=== PATIENT | male | born 1930 | race Caucasian/White ===

== ENCOUNTER → 2016-12-26 | Outpatient (CLI) | payer MEDICARE, OTHER ==
[~2016-12-26] MED LIST: AMLO5TAB2 PO; ASCO500T20 PO; ASP81TEC PO; CARV6.252 PO; CHOL100055 PO; DOXA4TAB2 PO; FURO40TA4 PO; OMG1KC PO; PARO20TA57 PO; POTA10TA6 PO; SIMV40TA4 PO; SULI200T4 PO
--- NOTE | 2016-12-26 13:10 | Diagnostic Imaging Report ---
PROCEDURE: MRI lumbar spine. TECHNIQUE: Multiplanar, multisequence MRI of the lumbar spine was performed without contrast. INDICATION: Left hip pain. FINDINGS: There is satisfactory alignment of the lumbar spine. The vertebral body heights are preserved. There is disc desiccation at all lumbar spine levels. Multilevel mild disc height loss is seen, more prominent at L2/3 and L3/4 levels. There are congenitally short pedicles resulting in background borderline congenital spinal canal stenosis, most prominent at L4/5 level reducing the AP dimension of the canal at the mid vertebral body level to 9.3 mm. With superimposed disc disease, there is significantly worse degree of stenosis at the disc levels. The cauda equina and conus medullaris appear grossly unremarkable. The conus terminates at the T12/L1 level. A 1.6 cm T1 hyperintense lesion within the vertebral body L4 and smaller similar lesions in other vertebral bodies are compatible with hemangiomas. T12/L1: There is diffuse disc bulge and bilateral mild facet joint arthropathy. No significant central canal stenosis. There is mild narrowing of the lateral recess bilaterally. The foramina demonstrate moderate stenosis bilaterally. L1/2: There is a diffuse disc bulge and moderate facet arthropathy. There is zxwhrpsm-xm-ljitwm central canal stenosis reducing the AP dimension of the canal to 6.8 mm, and there is bilateral lateral recess stenosis, moderate on the left and moderate to severe in the right side. There is bilateral foraminal stenosis, moderate on the left and moderate to severe on the right side. L2/3: There is diffuse disc bulge and pralbvpf-me-xqmqhc facet arthropathy superimposed on a short AP dimension of the canal resulting in markedly severe central canal stenosis reducing the AP dimension of the canal to 4 mm and associated with severe lateral recess stenosis bilaterally. There is bilateral foraminal stenosis, moderate to severe on the left and severe on the right side. L3/4: There is diffuse disc bulge and lhjgkcbv-jy-sclseo facet arthropathy superimposed on congenitally narrow AP dimension of the canal resulting in markedly severe central canal stenosis reducing the AP dimension of the canal to 4 mm with severe lateral recess stenosis bilaterally, worse on the left. The foramina demonstrate qqzjxggf-gr-oynuqz stenosis bilaterally. L4/5: There is diffuse disc bulge with superimposed posterior disc protrusion and ivwfhhxb-dg-vhszpj facet arthropathy. This is superimposed on a congenitally narrow AP dimension of the canal resulting in markedly severe central canal stenosis reducing the AP dimension of the canal to 3.5 mm and associated with bilateral severe lateral recess stenosis. The foramina demonstrate bilateral stenosis, moderate to severe bilaterally but worse on the left side. L5/S1: There is a minimal disc bulge and mild facet hypertrophy. No central canal stenosis. There is bilateral lateral recess stenosis, mild on the right and mild to moderate on the left. The foramina demonstrate moderate stenosis on the left and mild stenosis on the right side. 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 Other findings described above. Dictated by: Dictated on workstation # [id number]
== END ==
LOC: RAD 11:50
PROVIDERS: ATTEND Orthopaedic Surgery
DX: M51.26 Other intervertebral disc displacement, lumbar region (principal); M48.06 Spinal stenosis, lumbar region
CPT/HCPCS: 72148

== ENCOUNTER 2018-10-05 14:19 | Inpatient (IN) | payer MEDICARE, OTHER ==
[~2018-10-05] VITALS: Ht 172.7 cm; Wt 102.1 kg
[2018-10-05] MEDS ORDERED: NITROGLYCERIN 0.4 MG SL TABS BTL 25'S SL ONE (14:21)
[2018-10-05] MEDS ORDERED: NS IV 1000 ML 1,000 ML ONE (14:21)
[2018-10-05] MEDS: NITROGLYCERIN 0.4 MG SL TABS BTL 25'S SL PRN ×2 (14:28→14:40)
[2018-10-05] MEDS ORDERED: NS IV 1000 ML 1,000 ML IV SCH (14:30)
--- NOTE | 2018-10-05 14:32 | ED Chest Pain ---
General Stated Complaint: CP Source: patient, EMS Exam Limitations: no limitations History of Present Illness Date Seen by Provider: Oct 05, 2018 Time Seen by Provider: 14:28 Initial Comments This 87-year-old white male presents with a complaint of pressure type chest pain for which she the paramedics were called to care for the patient. The patient said similar chest pain the past from his previous coronary artery disease. He is status post bypass surgery. Paramedics provide the patient with partial relief with aspirin and nitroglycerin in route to the emergency department. The patient's chest pain went from a 7 to a 2. Patient has been slightly short of breath and diaphoretic. Patient denies vomiting. The patient denies associated fever or chill productive cough headache stiff neck photophobia diarrhea dysuria or frequency. Allergies and Home Medications Allergies Uncoded Allergies: ZOLOFT, PENICILLIN (Allergy, Mild, 07/27/11) Home Medications Amlodipine Besylate 5 Mg Tablet, 5 MG PO DAILY, (Reported) Ascorbic Acid 500 Mg Tablet, 500 MG PO BID, (Reported) Aspirin 81 Mg Tabec, 81 MG PO DAILY, (Reported) Carvedilol 6.25 Mg Tablet, 1 EACH PO BID, (Reported) Cholecalciferol (Vitamin D3) 10,000 Unit Capsule, 10,000 UNIT PO DAILY, ( Reported) Doxazosin Mesylate 4 Mg Tablet, 4 MG PO DAILY, (Reported) Furosemide 40 Mg Tablet, 1 EACH PO 3xweekly, (Reported) [place] 3 Polyunsat Fatty Acids 1,000 Mg Cap, 1,000 MG PO DAILY, (Reported) Paroxetine Hcl 20 Mg Tablet, 20 MG PO DAILY, (Reported) Potassium Chloride 10 Meq Tablet.sa, 1 EACH PO 3xweekly, (Reported) Simvastatin 40 Mg Tablet, 40 MG PO DAILY, (Reported) Sulindac 200 Mg Tablet, 200 MG PO BID, (Reported) Patient Home Medication List Home Medication List Reviewed: Yes Review of Systems Review of Systems Constitutional: No chills, No fever; malaise, weakness EENTM: No Blurred Vision, No Ear Pain Respiratory: Denies Cough; Shortness of Air Cardiovascular: See HPI, Chest Pain; Denies Palpitations Gastrointestinal: Denies Abdominal Pain, Denies Diarrhea; Nausea Genitourinary: No Symptoms Reported Musculoskeletal: No back pain Skin: No change in color, No rash Psychiatric/Neurological: No Symptoms Reported Endocrine: No Symptoms Reported Hematologic/Lymphatic: No Symptoms Reported Past Nahfpwk-Gxiidw-Ochmhl Hx Past Med/Social Hx: Reviewed Nursing Past Med/Soc Hx Patient Social History Recent Foreign Travel: No Contact w/Someone Who Travel: No Immunizations Up To Date Date of Influenza Vaccine: Jun 09, 2011 Past Medical History Reproductive Disorders: No Physical Exam Vital Signs Vital Signs - First Documented 10/05/18 10/05/18 14:19 14:20 Temp 98.0 Pulse 77 Resp 20 B/P (MAP) 163/97 (119) Pulse Ox 89 O2 Delivery Room Air O2 Flow Rate 2.00 Capillary Refill : Height, Weight, BMI Height: '68.00" Weight: 230lbs. oz. 104.742200mm; BMI Method: General Appearance: No Apparent Distress, WD/WN HEENT: Normal ENT Inspection Neck: Normal Inspection Respiratory: Chest Non Tender, Lungs Clear, Normal Breath Sounds Cardiovascular: No Murmur Gastrointestinal: Normal Bowel Sounds, No Organomegaly Extremity: Normal Capillary Refill, Normal Inspection, Normal Range of Motion Neurologic/Psychiatric: Alert, Oriented x3, No Motor/Sensory Deficits, Normal Mood/Affect Skin: Normal Color, Warm/Dry Focused Exam Lactate Level 10/05/18 14:25: Lactic Acid Level 1.93 Lactic Acid Level Laboratory Tests Test 10/05/18 14:25 Lactic Acid Level 1.93 MMOL/L (0.50-2.00) Progress/Results/Core Measures Results/Orders Lab Results Laboratory Tests Test 10/05/18 14:25 Range/Units White Blood Count 57.2 *H 4.3-11.0 10^3/uL Red Blood Count 3.08 L 4.35-5.85 10^6/uL Hemoglobin 10.7 L 13.3-17.7 G/DL Hematocrit 31 L 40-54 % Mean Corpuscular Volume 102 H 80-99 FL Mean Corpuscular Hemoglobin 35 H 25-34 PG Mean Corpuscular Hemoglobin Concent 34 32-36 G/DL Red Cell Distribution Width 17.3 H 10.0-14.5 % Platelet Count 106 L 130-400 10^3/uL Mean Platelet Volume 10.7 H 7.4-10.4 FL Neutrophils (%) (Auto) 42-75 % Lymphocytes (%) (Auto) 12-44 % Monocytes (%) (Auto) 0-12 % Eosinophils (%) (Auto) 0-10 % Basophils (%) (Auto) 0-10 % Neutrophils # (Auto) 1.8-7.8 X 10^3 Lymphocytes # (Auto) 1.0-4.0 X 10^3 Monocytes # (Auto) 0.0-1.0 X 10^3 Eosinophils # (Auto) 0.0-0.3 10^3/uL Basophils # (Auto) 0.0-0.1 10^3/uL Neutrophils % (Manual) 10 % Lymphocytes % (Manual) 1 % Nucleated Red Blood Cells 1 Atypical Lymphocytes 80 % Blast Cells 9 % Smudge Cells 21 PER 100 WBC Polychromasia SLIGHT Poikilocytosis SLIGHT Anisocytosis SLIGHT Macrocytosis SLIGHT Prothrombin Time 16.2 H 12.2-14.7 SEC INR Comment 1.3 0.8-1.4 Activated Partial Thromboplast Time 25 24-35 SEC Sodium Level 142 135-145 MMOL/L Potassium Level 4.8 3.6-5.0 MMOL/L Chloride Level 105 98-107 MMOL/L Carbon Dioxide Level 23 21-32 MMOL/L Anion Gap 14 5-14 MMOL/L Blood Urea Nitrogen 17 7-18 MG/DL Creatinine 1.29 0.60-1.30 MG/DL Estimat Glomerular Filtration Rate 53 BUN/Creatinine Ratio 13 Glucose Level 144 H 70-105 MG/DL Lactic Acid Level 1.93 0.50-2.00 MMOL/L Calcium Level 9.0 8.5-10.1 MG/DL Corrected Calcium 8.9 8.5-10.1 MG/DL Magnesium Level 2.2 1.8-2.4 MG/DL Total Bilirubin 0.6 0.1-1.0 MG/DL Aspartate Amino Transf (AST/SGOT) 47 H 5-34 U/L Alanine Aminotransferase (ALT/SGPT) 26 0-55 U/L Alkaline Phosphatase 64 40-136 U/L Myoglobin 281.0 H 10.0-92.0 NG/ML Troponin I 0.314 *H <0.028 NG/ML Total Protein 6.2 L 6.4-8.2 GM/DL Albumin 4.1 3.2-4.5 GM/DL My Orders Orders - HENRY HALEY MD Nitroglycerin 0.4 Mg Btl 25's (Nitrostat (10/05/18 14:21) Ns Iv 1000 Ml (Sodium Chloride 0.9%) (10/05/18 14:21) Cbc With Automated Diff (10/05/18 14:25) Magnesium (10/05/18 14:25) Chest 1 View, Ap/Pa Only (10/05/18 14:25) Ekg Tracing (10/05/18 14:25) Cardiac Profile 1 (10/05/18 14:25) Comprehensive Metabolic Panel (10/05/18 14:25) Myoglobin Serum (10/05/18 14:25) Protime With Inr (10/05/18 14:25) Partial Thromboplastin Time (10/05/18 14:25) O2 (10/05/18 14:25) Monitor-Rhythm Ecg Trace Only (10/05/18 14:25) Lipid Panel (10/06/18 06:00) Nitroglycerin 0.4 Mg Btl 25's (Nitrostat (10/05/18 14:30) Saline Lock/Iv-Start (10/05/18 14:25) Ns Iv 1000 Ml (Sodium Chloride 0.9%) (10/05/18 14:30) Manual Differential (10/05/18 14:25) Blood Culture (10/05/18 14:39) Lactic Acid Analyzer (10/05/18 14:39) Morphine Injection (Morphine Injection (10/05/18 15:30) Nitroglycerin Ointment (Nitrobid Ointme (10/05/18 15:30) Ceftriaxone For Iv Use (Rocephin For I (10/05/18 16:00) Blood Culture (10/05/18 15:47) Lactic Acid Analyzer (10/05/18 15:47) Medications Given in ED Current Medications Medications Dose Ordered Sig/Anthony Route Start Time Stop Time Status Last Admin Dose Admin Morphine Sulfate 5 mg ONCE ONCE IVP 10/05/18 15:30 10/05/18 15:31 DC 10/05/18 15:42 5 MG Nitroglycerin 0.4 mg UD PRN SL 10/05/18 14:30 10/05/18 14:40 0.4 MG Vital Signs/I&O 10/05/18 10/05/18 14:19 14:20 Temp 98.0 Pulse 77 Resp 20 B/P (MAP) 163/97 (119) Pulse Ox 89 O2 Delivery Room Air Nasal Cannula O2 Flow Rate 2.00 Progress Progress Note : Time: 15:52 Progress Note The patient's chest pain was treated with sublingual nitroglycerin in route in the emergency department. The patient had an aspirin in the field. His EKG demonstrated a right bundle branch block. His troponin was minimally elevated at 0.3. The patient's residual chest pain was treated with a 5 mg dose of morphine IV and an inch of Nitropaste. The patient stated after receiving these medicines that his chest pain was resolving. Telephone consultation was undertaken with Dr. Marsh who recommended continuation of the Nitropaste, aspirin, and low molecular weight heparin 1 mg/ kg subcutaneous every [address] Aguirre was kind enough to admit the patient. The patient's chest x-ray demonstrated a questionable small infiltrate in the right base. Blood cultures and lactic acid were drawn. The patient was placed on protocol for community-acquired pneumonia. He received 2 g of Rocephin in the emergency department. The patient's white count was 50,000 with a predominance of lymphocytes. Departure Communication (Admissions) Time/Spoke to Admitting Phy: 15:54 Dr. Aguirre. 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 Referrals: ISHA LEAVITT DO (PCP/Family) Primary Care Physician HENRY HALEY MD Oct 05, 2018 14:32
[2018-10-05 14:36] LABS: HEMATOCRIT 31 % (40-54); HEMOGLOBIN 10.7 G/DL (13.3-17.7); MEAN CORPUSCULAR HEMOGLOBIN 35 PG (25-34); MEAN CORPUSCULAR HGB CONC 34 G/DL (32-36); MEAN CORPUSCULAR VOLUME 102 FL (80-99); MEAN PLATELET VOLUME 10.7 FL (7.4-10.4); PLATELET COUNT 106 10^3/uL (130-400); RED CELL DISTRIBUTION WIDTH 17.3 % (10.0-14.5)
[2018-10-05 14:38] LABS: WHITE BLOOD COUNT 57.2 10^3/uL (4.3-11.0)
[2018-10-05 14:49] LABS: INR 1.3 (0.8-1.4); PROTHROMBIN TIME PATIENT 16.2 SEC (12.2-14.7)
[2018-10-05 14:55] LABS: ALBUMIN 4.1 GM/DL (3.2-4.5); BILIRUBIN,TOTAL 0.6 MG/DL (0.1-1.0); CREATININE SERUM 1.29 MG/DL (0.60-1.30); MAGNESIUM 2.2 MG/DL (1.8-2.4); POTASSIUM 4.8 MMOL/L (3.6-5.0); TOTAL PROTEIN 6.2 GM/DL (6.4-8.2)
--- NOTE | 2018-10-05 15:05 | Diagnostic Imaging Report ---
INDICATION: Chest pain, shortness air. TIME OF EXAM: 2:35 p.m. COMPARISON: No prior studies are available for comparison. FINDINGS: Changes of median sternotomy and CABG are noted. There are central congestive changes. There appears to be some mild infiltrate in the right base. No effusion or pneumothorax is seen. IMPRESSION: Central congestion with patchy right basilar infiltrate/atelectasis. Dictated by: Dictated on workstation # [id number]
[2018-10-05 15:12] LABS: ANISOCYTOSIS SLIGHT; ATYPICAL LYMPHOCYTES 80 %; BLAST CELLS 9 %; LYMPHOCYTES % (MANUAL) 1 %; NEUTROPHILS % (MANUAL) 10 %; NUCLEATED RED BLOOD CELLS 1; POIKILOCYTOSIS SLIGHT; POLYCHROMASIA SLIGHT; SMUDGE CELLS 21 PER 100 WBC
[2018-10-05] MEDS ORDERED: NITROGLYCERIN 2% OINT 1 GM UNIT DOSE PACKET TOP ONE (15:30)
[2018-10-05] MEDS ORDERED: morphine INJ 10 MG/ML 1ML (SYR OR VIAL) IVP ONE (15:30)
[2018-10-05] MEDS ORDERED: cefTRIAXone FOR IV USE 2,000 MG in WATER (STERILE) FOR INJECTION 20 ML IV ONE (16:00)
--- NOTE | 2018-10-05 16:19 | Consultation-Cardiology ---
HPI-Cardiology Cardiology Consultation Date of Consultation 10/05/18 Date of Admission Time Seen by Provider: 16:15 Indication: chest pain HPI 87 years old gentleman with history of coronary artery disease, had 2 bypass surgeries in the past, hypertension and hyperlipidemia. Was in his usual state of health until yesterday when he started having mild shortness of breath and fatigue in addition to chest pain, expressed that he had pain all over his chest yesterday which became more left sided this afternoon, called EMS and given sublingual nitroglycerin with appropriate improvement of his chest pain, up and arrival to the emergency room receive a second dose of nitroglycerin and reported relief of his chest pain, currently having mild discomfort. No palpitation. Mild dyspnea. Mild pedal edema, no fever or chills. No cough or sputum. Home Medications & Allergies Allergies: Uncoded Allergies: ZOLOFT, PENICILLIN (Allergy, Mild, 07/27/11) Home Medication List Reviewed: Yes ZZJ-[place]-Fhjkmf Hx Patient Social History Employed/Student: retired Recent Foreign Travel: No Recent Infectious Disease Expo: No Immunizations Up To Date Date of Influenza Vaccine: Jun 09, 2011 Past Medical History Past medical history as described below Family Medical History Family Medical Hx Noncontributory to his current condition Review of Systems Constitutional: see HPI, malaise, weakness EENTM: see HPI, no symptoms reported Respiratory: see HPI; No cough; dyspnea on exertion; No hemoptysis, No orthopnea, No phlegm, No short of breath, No stridor, No wheezing, No other Cardiovascular: see HPI, chest pain, edema; No Hx of Intervention, No palpitations, No syncope, No vascular heart diseas, No other Gastrointestinal: no symptoms reported, see HPI Genitourinary: no symptoms reported, see HPI Musculoskeletal: no symptoms reported, see HPI Skin: no symptoms reported, see HPI Psychiatric/Neurological: No Symptoms Reported, See HPI Reviewed Test Results Reviewed Test Results Lab Laboratory Tests Test 10/05/18 14:25 Range/Units White Blood Count 57.2 *H 4.3-11.0 10^3/uL Red Blood Count 3.08 L 4.35-5.85 10^6/uL Hemoglobin 10.7 L 13.3-17.7 G/DL Hematocrit 31 L 40-54 % Mean Corpuscular Volume 102 H 80-99 FL Mean Corpuscular Hemoglobin 35 H 25-34 PG Mean Corpuscular Hemoglobin Concent 34 32-36 G/DL Red Cell Distribution Width 17.3 H 10.0-14.5 % Platelet Count 106 L 130-400 10^3/uL Mean Platelet Volume 10.7 H 7.4-10.4 FL Neutrophils (%) (Auto) 42-75 % Lymphocytes (%) (Auto) 12-44 % Monocytes (%) (Auto) 0-12 % Eosinophils (%) (Auto) 0-10 % Basophils (%) (Auto) 0-10 % Neutrophils # (Auto) 1.8-7.8 X 10^3 Lymphocytes # (Auto) 1.0-4.0 X 10^3 Monocytes # (Auto) 0.0-1.0 X 10^3 Eosinophils # (Auto) 0.0-0.3 10^3/uL Basophils # (Auto) 0.0-0.1 10^3/uL Neutrophils % (Manual) 10 % Lymphocytes % (Manual) 1 % Nucleated Red Blood Cells 1 Atypical Lymphocytes 80 % Blast Cells 9 % Smudge Cells 21 PER 100 WBC Polychromasia SLIGHT Poikilocytosis SLIGHT Anisocytosis SLIGHT Macrocytosis SLIGHT Prothrombin Time 16.2 H 12.2-14.7 SEC INR Comment 1.3 0.8-1.4 Activated Partial Thromboplast Time 25 24-35 SEC Sodium Level 142 135-145 MMOL/L Potassium Level 4.8 3.6-5.0 MMOL/L Chloride Level 105 98-107 MMOL/L Carbon Dioxide Level 23 21-32 MMOL/L Anion Gap 14 5-14 MMOL/L Blood Urea Nitrogen 17 7-18 MG/DL Creatinine 1.29 0.60-1.30 MG/DL Estimat Glomerular Filtration Rate 53 BUN/Creatinine Ratio 13 Glucose Level 144 H 70-105 MG/DL Lactic Acid Level 1.93 0.50-2.00 MMOL/L Calcium Level 9.0 8.5-10.1 MG/DL Corrected Calcium 8.9 8.5-10.1 MG/DL Magnesium Level 2.2 1.8-2.4 MG/DL Total Bilirubin 0.6 0.1-1.0 MG/DL Aspartate Amino Transf (AST/SGOT) 47 H 5-34 U/L Alanine Aminotransferase (ALT/SGPT) 26 0-55 U/L Alkaline Phosphatase 64 40-136 U/L Myoglobin 281.0 H 10.0-92.0 NG/ML Troponin I 0.314 *H <0.028 NG/ML Total Protein 6.2 L 6.4-8.2 GM/DL Albumin 4.1 3.2-4.5 GM/DL Physical Exam Vital Signs Vital Signs - First Documented 10/05/18 10/05/18 14:19 14:20 Temp 98.0 Pulse 77 Resp 20 B/P (MAP) 163/97 (119) Pulse Ox 89 O2 Delivery Room Air O2 Flow Rate 2.00 Capillary Refill : Less Than 3 Seconds Height, Weight, BMI Height: 5'8.00" Weight: 220lbs. oz. 99.336821ju; BMI Method:Stated General Appearance: No Apparent Distress, WD/WN Eyes: Bilateral Eye Normal Inspection, Bilateral Eye PERRL, Bilateral Eye EOMI HEENT: PERRL/EOMI, TMs Normal, Normal ENT Inspection, Pharynx Normal Neck: Full Range of Motion, Normal Inspection, Non Tender, Supple, Carotid Bruit Respiratory: Chest Non Tender, Lungs Clear, Normal Breath Sounds, No Accessory Muscle Use, No Respiratory Distress Cardiovascular: Regular Rate, Rhythm, No JVD, No Murmur, Normal Peripheral Pulses, Gallop/S3 Gastrointestinal: Normal Bowel Sounds, No Organomegaly, No Pulsatile Mass, Non Tender, Soft Back: Normal Inspection, No CVA Tenderness, No Vertebral Tenderness Extremity: Normal Capillary Refill, Normal Inspection, Normal Range of Motion, Non Tender, No Calf Tenderness, Pedal Edema (mild) Neurologic/Psychiatric: Alert, Oriented x3, No Motor/Sensory Deficits, Normal Mood/Affect Skin: Normal Color, Warm/Dry Lymphatic: No Adenopathy A/P-Cardiology Admission Diagnosis Chest pain Non-ST elevation myocardial infarction Coronary artery disease Hypertension Hyperlipidemia Assessment/Plan Chest pain, slight elevation in troponin and myoglobin, non-ST elevation myocardial infarction, conservative management at this time, he is feeling better. Continue to monitor, monitor the trend of his cardiac enzymes. Coronary artery disease, history of CABG 4 done in 1981 and redo CABG 5 done in 1999, has been followed by Dr. Cardoza, had an angiogram about 5 years ago and treated conservatively Hypertension, restart home medication, has been on losartan and carvedilol. Monitor blood pressure Hyperlipidemia, monitor lipids Benign prostatic hypertrophy Parkinson disease DAVINA YAN MD Oct 05, 2018 16:19
[2018-10-05] MEDS ORDERED: ASPIRIN E.C. 325 MG (ECOTRIN) TABLET PO ONE (16:30)
[2018-10-05] MEDS ORDERED: ENOXAPARIN 100 MG/1 ML (LOVENOX) SYR SC SCH ×2 (16:30)
--- NOTE | 2018-10-05 17:10 | NUR ---
BRIANA GARCIA admitted to room 408-1, with an admitting diagnosis of CHEST PAIN, POSSIBLE IA, LEUKOCYTOSIS, POSSIBLE LYMPHOMA, PNEUMONIA, on 10/05/18 from ED via STRETCHER, accompanied by STAFF. BRIANA GARCIA introduced to surroundings, call light, bed controls, phone, TV, temperature control, lights, meal times, smoking policy, visitor policy, side rail policy, bathrooms and showers. Patient Rights given to patient in the handbook. BRIANA GARCIA verbalizes understanding that [facility] is not responsible for the loss or damage to any personal effects or valuables that are kept in the patients posession during their hospitalization. BRIANA GARCIA verbalizes understanding of Interdisciplinary Patient Education. Patient and/or family were informed about the Rapid Response Team and its purpose.
[2018-10-05 18:48] VITALS: BP 140/65
[2018-10-05] MEDS: NS IV 1000 ML 1,000 ML IV SCH (19:31)
[2018-10-05] MEDS ORDERED: AZITHROMYCIN 500 MG/NS 250 ML IVPB IV ONE ×2 (19:45)
[2018-10-05 19:51] VITALS: BP 157/72
--- NOTE | 2018-10-05 20:10 | NUR ---
2002- CRITICAL RESULT CALLED FROM LAB. TROPONIN-0.427. PTS VITAL SIGNS AT THIS TIME ARE T-100.1, PULSE-78, RESP-18, O2-93% ON 2 LITERS NC, BP-157/72 AND NO CHEST PAIN AT THIS TIME. 2008- SPOKE WITH DR. YAN AND INFORMED HIM OF PTS CONDITION, CRITICAL LAB AND PREVIOUS EKG READING. NO NEW ORDERS AT THIS TIME. WILL CONTINUE TO MONITOR PT.
[2018-10-05] MEDS: RT-ALBUTEROL SULF 2.5 MG/3 ML PRE-MIX VIAL INH SCH (21:09)
[2018-10-05] MEDS: NITROGLYCERIN 2% OINT 1 GM UNIT DOSE PACKET TOP SCH (21:48)
[2018-10-05] MEDS: CARVEDILOL 12.5 MG (COREG) TABLET PO SCH (21:48)
--- OUTSIDE RECORDS SUMMARY | 2018-10-05 22:50 | XMS REPORT ---
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 Role Phone GAMALIEL LOZA Unavailable PROBLEMS Type Condition ICD9-CM Code FSO27-LS Code Onset Dates Condition Status SNOMED Code Problem Encounter for dental examination Z01.20 Active [id number] ALLERGIES Substance Reaction Event Type Date Status Zoloft Unknown Drug Allergy Aug, Active Penicillin V Potassium Unknown Drug Allergy Aug, Active SOCIAL HISTORY No smoking Hx information available PLAN OF CARE Activity Details Follow Up First Available Reason:Restorative VITAL SIGNS Heart Rate 63 bpm 2016-09-26 Blood pressure systolic 158 mmHg 2016-09-26 Blood pressure diastolic 78 mmHg 2016-09-26 MEDICATIONS Medication Instructions Dosage Frequency Start Date End Date Duration Status Cephalexin 500 MG Orally Twice a day 1 tablet 12h Active Simvastatin Active Doxazosin Mesylate Active Aspirin Active Terazosin HCl Active Carvedilol Active Vitamin D-3 Active Vitamin B 12 Active Amber-C Active Furosemide Active Losartan Potassium Active RESULTS No Results PROCEDURES Procedure Date Ordered Related Diagnosis Body Site LTD ORAL EVALUATION - PROBLEM FOCUS Sep 26, 2016 Periodontal maint procedures Sep 26, 2016 TOPICAL FLUORIDE VARNISH Sep 26, 2016 IMMUNIZATIONS No Known Immunizations
--- OUTSIDE RECORDS SUMMARY | 2018-10-05 22:51 | XMS REPORT ---
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 Role Phone ROSIE BERRY CP Unavailable Allergies, Adverse Reactions, Alerts Substance Reaction Event Type Zoloft Info Not Available Drug Allergy Penicillin V Potassium Info Not Available Drug Allergy Problems Problem Type Condition Code Onset Dates Condition Status Assessment Dental caries K02.9 Active Assessment Encounter for dental examination Z01.20 Active Medications Medication Code System Code Instructions Start Date End Date Status Dosage Losartan Potassium [facility] [address]-72 not defined Simvastatin [facility] [address]-65 not defined Vitamin B 12 [facility] [address] not defined Amber-C [facility] [address]-02 not defined Doxazosin Mesylate [facility] [address]-12 not defined Aspirin [facility] [address]-60 not defined Carvedilol [facility] [address]-20 not defined Vitamin D-3 [facility] [address] not defined Furosemide [facility] [address]-77 not defined Klor-Con [facility] [address]-08 not defined [place] [facility] [address]-59 5-325 MG Orally every 6 hrs Jun 14, 2015 Jun 18, 2015 1 tablet as needed Fish Oil [facility] [address]-46 not defined Procedures Procedure Coding System Code Date EXTRAC ERUPTED TOOTH/EXPOSED ROOT CPT-4 D7140 May 24, 2015 EXTRAC ERUPTED TOOTH/EXPOSED ROOT CPT-4 D7140 May 24, 2015 Vital Signs Date/Time: Jun 14, 2015 Blood Pressure Diastolic 53 mmHg Blood Pressure Systolic 143 mmHg Results No Known Results Summary Purpose [employer] Submission
--- OUTSIDE RECORDS SUMMARY | 2018-10-05 22:51 | XMS REPORT | Continuity of Care Document ---
Author Author [facility] Organization [facility] Address Unknown Phone Unavailable Allergies Active Description Code Type Severity Reaction Onset Reported/Identified Relationship to Patient Clinical Status Yes PENICILLINS (CLASS) [id number] CLASS N/A N/A Yes ZOLOFT [id number] BRANDNAME N/A N/A Yes ZOLOFT, PENICILLIN ZOLOFT, PENICILLIN Mild N/A 07/27/2011 Medications There is no data. Problems Date Dx Coded Attending Type Code Diagnosis Diagnosed By 07/27/2011 Ot 562.10 DIVERTICULOSIS COLON (W/O MENT OF HEMORR 07/27/2011 Ot 792.1 ABN FIND- STOOL CONTENTS 07/27/2011 Ot V72.61 ANTIBODY RESPONSE EXAMINATION 07/28/2014 Ot 410.20 07/28/2014 Ot 410.30 07/28/2014 Ot 410.40 07/28/2014 Ot 414.01 07/28/2014 Ot 429.3 07/28/2014 Ot 433.30 07/28/2014 Ot 272.0 07/28/2014 Ot 401.1 07/28/2014 Ot 410.40 07/28/2014 Ot 414.01 07/28/2014 Ot 396.3 07/28/2014 Ot 397.0 07/28/2014 Ot 414.01 07/28/2014 Ot 786.05 07/28/2014 Ot 414.01 07/28/2014 Ot 782.0 07/28/2014 Ot 799.02 07/28/2014 Ot V43.65 09/01/2014 EMILIA SIERRA, DAVID Drake Ot 414.00 09/01/2014 DAVID NIETO MD Ot 429.3 02/03/2016 JESSICA CM Ot I65.22 OCCLUSION AND STENOSIS OF LEFT CAROTID A 02/03/2016 JESSICA CM Ot E78.5 HYPERLIPIDEMIA, UNSPECIFIED 02/03/2016 JESSICA CM Ot I10 ESSENTIAL (PRIMARY) HYPERTENSION 02/03/2016 JESSICA CM Ot I65.23 OCCLUSION AND STENOSIS OF BILATERAL [place] 02/22/2016 JESSICA CM Ot E78.5 HYPERLIPIDEMIA, UNSPECIFIED 02/22/2016 JESSICA CMP Ot I10 ESSENTIAL (PRIMARY) HYPERTENSION 02/22/2016 JESSICA CMP Ot I65.23 OCCLUSION AND STENOSIS OF BILATERAL [place] 12/25/2016 Ot 414.01 CORONARY ATHEROSCLEROSIS OF [place] CORON 12/25/2016 Ot 782.0 SKIN SENSATION DISTURB 12/25/2016 Ot 799.02 HYPOXEMIA 12/25/2016 Ot V43.65 KNEE JOINT REPLACEMENT STATUS 12/25/2016 EMILIA SIERRA, DAVID Drake Ot 414.00 CORON ATHEROSCLER NOS TYPE VESSEL, NATIV 12/25/2016 EMILIA SIERRA, DAVID Drake Ot 429.3 CARDIOMEGALY 12/25/2016 TOIJESSICA Ot E78.5 HYPERLIPIDEMIA, UNSPECIFIED 12/25/2016 TOIJESSICAP Ot I10 ESSENTIAL (PRIMARY) HYPERTENSION 12/25/2016 JESSICA CM Ot I65.23 OCCLUSION AND STENOSIS OF BILATERAL [place] 12/26/2016 Ot 414.01 CORONARY ATHEROSCLEROSIS OF [place] CORON 12/26/2016 Ot 782.0 SKIN SENSATION DISTURB 12/26/2016 Ot 799.02 HYPOXEMIA 12/26/2016 Ot V43.65 KNEE JOINT REPLACEMENT STATUS 12/26/2016 EMILIA SIERRA, DAVID Drake Ot 414.00 CORON ATHEROSCLER NOS TYPE VESSEL, NATIV 12/26/2016 DAVID NIETO MD Ot 429.3 CARDIOMEGALY 12/26/2016 EJSSICA CM Ot E78.5 HYPERLIPIDEMIA, UNSPECIFIED 12/26/2016 JESSICA CMP Ot I10 ESSENTIAL (PRIMARY) HYPERTENSION 12/26/2016 TOIJESSICAP Ot I65.23 OCCLUSION AND STENOSIS OF BILATERAL [place] 01/17/2017 PHILL SIERRA, JACLYN R Ot M48.06 SPINAL STENOSIS, LUMBAR REGION 01/17/2017 PHILL SIERRA, JACLYN R Ot M51.26 OTHER INTERVERTEBRAL DISC DISPLACEMENT, 10/05/2018 EMILIA SIERRA, DAVID Drake Ot 414.00 CORON ATHEROSCLER NOS TYPE VESSEL, NATIV 10/05/2018 EMILIA SIERRA, DAVID Drake Ot 429.3 CARDIOMEGALY 10/05/2018 JESSICA CMP Ot E78.5 HYPERLIPIDEMIA, UNSPECIFIED 10/05/2018 JESSICA CMP Ot I10 ESSENTIAL (PRIMARY) HYPERTENSION 10/05/2018 JESSICA CMP Ot I65.23 OCCLUSION AND STENOSIS OF BILATERAL [place] 10/05/2018 PHILL SIERRA, JACLYN Mccray Ot M48.06 SPINAL STENOSIS, LUMBAR REGION 10/05/2018 PHILL SIERRA, JACLYN Mccray Ot M51.26 OTHER INTERVERTEBRAL DISC DISPLACEMENT, Procedures There is no data. Results There is no data. Encounters ACCT No. Visit Date/Time Discharge Status Pt. Type Provider Facility Loc./Unit Complaint [id number] 12/26/2016 11:50:00 12/26/2016 23:59:59 CLS Outpatient JACLYN POLLOCK MD [facility] RAD BACK AND LEG PAIN [id number] 02/01/2016 10:24:00 02/01/2016 23:59:59 CLS Outpatient JESSICA CMP [facility] RAD CAD [id number] 07/30/2014 08:18:00 07/30/2014 23:59:59 CLS Outpatient DAVID NIETO MD [facility] CARD CAD [id number] 10/05/2018 15:40:00 ACT Inpatient DEVONTE PAGE DO [facility] 4TH CHEST PAIN,POSSIBLE [place],LEUBROCYTOSIS,LMPHOA [id number] 12/14/2011 11:55:00 Document Registration [id number] 10/11/2011 08:08:00 Document Registration [id number] 07/27/2011 11:35:00 Document Registration [id number] 02/06/2011 13:31:00 Document Registration [id number] 10/26/2010 07:04:00 Document Registration [id number] 03/19/2009 12:43:00 Document Registration [id number] 03/10/2009 06:35:00 Document Registration [id number] 09/24/2017 11:00:00 09/24/2017 23:59:59 CLS Outpatient NELSON TRICIAJHONNYI [facility] [id number] 05/30/2018 14:27:45 Document Registration [id number] 09/26/2017 13:27:02 Document Registration 12/21/15 09/25/2018 10:33:02 09/25/2018 23:59:59 [facility] Outpatient Charity Lemus
--- OUTSIDE RECORDS SUMMARY | 2018-10-05 22:51 | XMS REPORT ---
Author Author ERICA GUERRERO Organization [employer] Address Unknown Phone Unavailable Care Team Providers Care Angle Shear Operator Name Role Phone ERICA GUERRERO CP Unavailable Allergies, Adverse Reactions, Alerts Substance Reaction Event Type Zoloft Info Not Available Drug Allergy Penicillin V Potassium Info Not Available Drug Allergy Problems Problem Type Condition Code Onset Dates Condition Status Assessment Dental examination Z01.20 Active Problem Encounter for dental examination Z01.20 Active Medications Medication Code System Code Instructions Start Date End Date Status Dosage Doxazosin Mesylate [facility] [id number] not defined Vitamin D-[address] [facility] [id number] not defined Aspirin [facility] [id number] not defined Vitamin B [address] [facility] [address] not defined Simvastatin [facility] [id number] not defined Amber-C [facility] [phone] not defined Terazosin HCl [facility] [address]-26 not defined Fish Oil [facility] [id number] not defined Carvedilol [facility] [address]-42 not defined Losartan Potassium [facility] [phone] not defined Klor-Con [facility] [address]-84 not defined Cephalexin [facility] [id number] 500 MG Orally Twice a day 1 tablet Furosemide [facility] [phone] not defined Procedures Procedure Coding System Code Date RESIN COMPOS - 1 SURFACE POSTERIOR CPT-4 D2391 Mar 28, 2016 Vital Signs Date/Time: Mar 28, 2016 Blood Pressure Diastolic 57 mmHg Blood Pressure Systolic 135 mmHg Results No Known Results Summary Purpose [employer] Submission
--- OUTSIDE RECORDS SUMMARY | 2018-10-05 22:51 | XMS REPORT ---
Author Author ERICA GUERRERO [facility] Address Unknown Care Team Providers Care Director Of Automation Name Role Phone CESAR ERICA Unavailable PROBLEMS Type Condition ICD9-CM Code VPR01-SK Code Onset Dates Condition Status SNOMED Code Problem Encounter for dental examination Z01.20 Active [id number] ALLERGIES Substance Reaction Event Type Date Status Zoloft Unknown Drug Allergy Nov, Active Penicillin V Potassium Unknown Drug Allergy Nov, Active SOCIAL HISTORY Never Assessed PLAN OF CARE Activity Details Follow Up prn Reason:hygiene VITAL SIGNS Blood pressure systolic 129 mmHg 2016-12-08 Blood pressure diastolic 79 mmHg 2016-12-08 MEDICATIONS Medication Instructions Dosage Frequency Start Date End Date Duration Status Vitamin B 12 Active Aspirin Active Losartan Potassium Active Terazosin HCl Active Doxazosin Mesylate Active Cephalexin 500 MG Orally Twice a day 1 tablet 12h Active Furosemide Active Carvedilol Active Simvastatin Active Vitamin D-3 Active Amber-C Active RESULTS No Results PROCEDURES Procedure Date Ordered Result Body Site RESIN COMPOS - ONE SURFACE ANTERIOR December 08, 2016 IMMUNIZATIONS No Known Immunizations MEDICAL (GENERAL) HISTORY Type Description Date Medical History HBP Medical History heart disease Medical History heart murmur Medical History angina Medical History arthritis Medical History back trouble Medical History rheumatic fever Surgical History hip replacement 2004 Surgical History knees replaced ( FROM OLD CHART) ORTHO/CARDIO. REQ. PT. TAKE A PRE-MED PRIOR TO ALL DENTAL VISIT.S 2012 Hospitalization History see above
[2018-10-05 23:10] VITALS: BP 142/72
--- NOTE | 2018-10-06 02:09 | NUR ---
0157- CRITICAL RESULT RECEIVED FROM LAB, TROPONIN-0.447. 0210- SPOKE WITH DR YAN AND INFORMED HIM OF CRITICAL RESULT. NO NEW ORDERS AT THIS TIME. WILL CONTINUE TO MONITOR PT. NO CURRENT CHEST PAIN AT THIS TIME.
[2018-10-06 04:22] VITALS: BP 164/75
[2018-10-06] MEDS: RT-ALBUTEROL SULF 2.5 MG/3 ML PRE-MIX VIAL INH PRN (04:45)
[2018-10-06] MEDS: ENOXAPARIN 100 MG/1 ML (LOVENOX) SYR SC SCH ×2 (05:06→17:05)
[2018-10-06 05:11] LABS: HEMATOCRIT 30 % (40-54); HEMOGLOBIN 9.8 G/DL (13.3-17.7); MEAN CORPUSCULAR HEMOGLOBIN 34 PG (25-34); MEAN CORPUSCULAR HGB CONC 33 G/DL (32-36); MEAN CORPUSCULAR VOLUME 103 FL (80-99); MEAN PLATELET VOLUME 11.8 FL (7.4-10.4); PLATELET COUNT 94 10^3/uL (130-400); RED CELL DISTRIBUTION WIDTH 17.5 % (10.0-14.5)
[2018-10-06 05:13] LABS: WHITE BLOOD COUNT 61.7 10^3/uL (4.3-11.0)
[2018-10-06 05:31] LABS: CHOLESTEROL 97 MG/DL (< 200); HDL CHOLESTEROL 25 MG/DL (40-60); TRIGLYCERIDES 120 MG/DL (<150); VLDL CHOLESTEROL 24 MG/DL (5-40)
[2018-10-06 05:33] LABS: ALBUMIN 3.6 GM/DL (3.2-4.5); BILIRUBIN,TOTAL 0.4 MG/DL (0.1-1.0); CALCIUM 8.4 MG/DL (8.5-10.1); CREATININE SERUM 1.23 MG/DL (0.60-1.30); TOTAL PROTEIN 5.5 GM/DL (6.4-8.2)
--- NOTE | 2018-10-06 06:18 | NUR ---
0515- RECEIVED CRITICAL RESULT FROM LAB WBC-61.7. 0547- RECEIVED ANOTHER CRITICAL RESULT FROM LAB. TROPONIN- 0.39. 0550- SPOKE WITH DR. PAGE AND INFORMED HER OF PTS CRITICAL RESULTS. NO NEW ORDERS AT THIS TIME.
[2018-10-06] MEDS ORDERED: FLU QUADRIvalent (5+ YOA) 2018-2019 (AFLURIA) 0.5 ML IM ONE (07:30)
[2018-10-06 08:00] VITALS: BP 165/77
[2018-10-06] MEDS: RT-ALBUTEROL SULF 2.5 MG/3 ML PRE-MIX VIAL INH SCH ×4 (08:02→19:23)
[2018-10-06] MEDS: NITROGLYCERIN 2% OINT 1 GM UNIT DOSE PACKET TOP SCH ×2 (08:05→23:04)
[2018-10-06] MEDS: CARVEDILOL 12.5 MG (COREG) TABLET PO SCH ×2 (08:05→18:01)
[2018-10-06] MEDS: ASPIRIN 325 MG (5 GR) TABLET PO SCH (08:05)
[2018-10-06] MEDS: LOSARTAN 50 MG (COZAAR) TAB PO SCH (08:05)
[2018-10-06] MEDS ORDERED: ASPIRIN E.C. 81 MG (ECOTRIN) TAB PO SCH (09:00)
[2018-10-06] MEDS ORDERED: AZITHROMYCIN 250 MG TAB (ZITHROMAX) PO SCH (09:00)
--- NOTE | 2018-10-06 10:49 | Diagnostic Imaging Report ---
Indication: Chest pain. Time of exam: 3:08 AM Correlation is made with prior study one day earlier. Changes of median sternotomy are noted. There is central congestion with bilateral perihilar and bibasilar infiltrates, similar to yesterday. No effusion or pneumothorax is seen. Impression: Stable chest since examination one day earlier. Dictated by: Dictated on workstation # [id number]
[2018-10-06] MEDS: NS IV 1000 ML 1,000 ML IV SCH ×2 (11:02→23:06)
[2018-10-06] MEDS ORDERED: FUROSEMIDE 40 MG/4 ML INJ (LASIX) IVP NR (11:15)
--- NOTE | 2018-10-06 11:15 | Cardiology Progress Note ---
Subjective Date Seen by Provider: Oct 06, 2018 Time Seen by Provider: 11:12 Subjective/Events-last exam patient is sitting upright in bed, having worsening shortness of breath. Denied any chest pain. No palpitation Review of Systems General: No Chills, No Night Sweats; Fatigue, Malaise; No Appetite, No Other HEENT: No Head Aches, No Visual Changes, No Eye Pain, No Ear Pain, No Dysphasia , No Sinus Congestion, No Post Nasal Drip, No Sore Throat, No Other Pulmonary: Dyspnea, Cough; No Pleuritic Chest Pain, No Other Cardiovascular: Chest Pain; No: Palpitations, Orthopnea, Paroxysmal Noc. Dyspnea, Edema, Lt Headedness, Other Focused Exam Lactate Level 10/05/18 14:25: Lactic Acid Level 1.93 Objective-Cardiology Exam Last Set of Vital Signs Vital Signs Capillary Refill : Less Than 3 Seconds I&O Intake and Output 10/06/18 00:00 Intake Total 1300 ml Output Total 100 ml Balance 1200 ml Intake Oral 300 ml IV Total 1000 ml Output Urine Total 100 ml Daily Weight Change No No General: Alert, Oriented X3, Cooperative, Moderate Distress HEENT: Atraumatic, PERRLA Neck: Supple, No JVD, No Thyromegaly Lungs: Normal Air Movement, Other (bilateral rhonchi) Heart: Regular Rate, Normal S1, Normal S2, No Murmurs Abdomen: Normal Bowel Sounds, Soft, No Tenderness, No Hepatosplenomegaly, No Masses Extremities: No Clubbing, No Cyanosis, Normal Pulses, No Tenderness/Swelling, Other (trace edema) Skin: No Rashes, No Breakdown, No Significant Lesion Neuro: Normal Gait, Normal Speech, Strength at 5/5 X4 Ext, Normal Tone, Sensation Intact Psych/Mental Status: Mental Status NL, Mood NL Results Lab Laboratory Tests 10/05/18 14:25 10/06/18 05:00 A/P-Cardiology Admission Diagnosis Chest pain Non-ST elevation myocardial infarction Coronary artery disease Hypertension Hyperlipidemia Assessment/Plan Non-ST elevation myocardial infarction, conservative management at this time, no chest pain was noted at this time. Congestive heart failure, acute left ventricular systolic dysfunction, inferior wall is akinetic to severely hypokinetic, ejection fraction 40-45 percent, I will start him on IV Lasix and monitor tolerance and response Questionable pneumonia on chest x-ray, started on Rocephin and Zithromax, managed by primary care team Leukocytosis, WBC around 60,000, anemia and thrombocytopenia, questionable underlying malignancy. Consult Dr. Chinchilla Coronary artery disease, history of CABG 4 done in 1981 and redo CABG 5 done in 1999, has been followed by Dr. Cardoza, had an angiogram about 5 years ago and treated conservatively Hypertension, continue to monitor blood pressure at this time Hyperlipidemia, has been on simvastatin, monitor lipids Benign prostatic hypertrophy Parkinson disease Clinical Quality Measures AMI/AHF: ASA po Prior to arrival: Yes (324 PER EMS) DVT/VTE Risk/Contraindication: Risk Factor Score Per Nursin RFS Level Per Nursing on Admit: 4+=Very High DAVINA YAN MD Oct 06, 2018 11:15
[2018-10-06 11:51] LABS: ATYPICAL LYMPHOCYTES 90 %; LYMPHOCYTES % (MANUAL) 2 %; NEUTROPHILS % (MANUAL) 8 %; NUCLEATED RED BLOOD CELLS 3; SMUDGE CELLS SLIGHT
[2018-10-06 11:52] LABS: ANISOCYTOSIS SLIGHT; POLYCHROMASIA SLIGHT
[2018-10-06 12:00] VITALS: BP 157/70
[2018-10-06] MEDS: ACETAMINOPHEN 325 MG TABLET PO PRN (12:33)
--- NOTE | 2018-10-06 14:17 | History & Physical-Hospitalist ---
History of Present Illness HPI/Chief Complaint The patient is an 87-year-old white male who presented to the emergency room yesterday complaining of chest pain. He reported that he had begun to have some mild shortness of breath and fatigue plus a rather generalized chest pain on Sunday the day prior. He noted the pain to be, more focused on the left side yesterday and called the EMS was brought to the emergency room. He had been given a sublingual nitroglycerin by the E MS crew and noted relief of the pressure sensation. He has a past history of 2 previous coronary artery surgeries the last being in 2004. While in the emergency room it was also noted that his white blood count was 15,000 with a predominance of lymphocytes consistent with CLL. He was unaware of this previously. Date Seen 10/06/18 Time Seen by a Provider: 14:13 Attending Physician Stephanie Aguirre DO PCP Charity Lemus DO Referring Physician Date of Admission Oct 05, 2018 at 15:40 Home Medications & Allergies Home Medications Reviewed patient Home Medication Reconciliation performed by pharmacy medication reconciliations aircraft engine technician and/or nursing. Patients Allergies have been reviewed. Allergies Allergies Uncoded Allergies ZOLOFT, PENICILLIN ( Allergy, Mild, 07/27/11) Past Hrqoofc-Icrbsl-Owtnrw Hx Past Med/Social Hx: Reviewed Nursing Past Med/Soc Hx Patient Social History Employed/Student: retired Alcohol Use: Denies Use Recreational Drug Use: No Smoking Status: Former Smoker Physical Abuse Screen: No Sexual Abuse: No Recent Foreign Travel: No Contact w/other who traveled: No Recent Hopitalizations: No Recent Infectious Disease Expo: No Immunizations Up To Date Date of Influenza Vaccine: Jun 09, 2011 Past Medical History Surgeries: CABG, Gallbladder, Orthopedic Cardiac: Heart Attack, Hypertension Reproductive: No Sexually Transmitted Disease: No Genitourinary: Benign Prostatic Hyperpl Gastrointestinal: Gastroesophageal Reflux Musculoskeletal: Arthritis HEENT: Cataract Loss of Vision: Denies Hearing Impairment: Denies Psychosocial: Depression History of Blood Disorders: No Adverse Reaction to Blood Stephen[place]: No Review of Systems Constitutional: see HPI EENTM: no symptoms reported Respiratory: dyspnea on exertion Cardiovascular: see HPI, chest pain Gastrointestinal: no symptoms reported Musculoskeletal: no symptoms reported Skin: no symptoms reported Psychiatric/Neurological: No Symptoms Reported Physical Exam Physical Exam Vital Signs Vital Signs - First Documented 10/05/18 10/05/18 14:19 14:20 Temp 98.0 Pulse 77 Resp 20 B/P (MAP) 163/97 (119) Pulse Ox 89 O2 Delivery Room Air O2 Flow Rate 2.00 Capillary Refill : Less Than 3 Seconds Height, Weight, BMI Height: 5'8.00" Weight: 219lbs. 8.0oz. 99.058483bl; BMI Method:Stated General Appearance: No Apparent Distress, WD/WN Eyes: Bilateral Eye Normal Inspection, Bilateral Eye PERRL, Bilateral Eye EOMI HEENT: PERRL/EOMI, TMs Normal, Normal ENT Inspection, Pharynx Normal Neck: Full Range of Motion, Normal Inspection, Non Tender, Supple, Carotid Bruit Respiratory: Chest Non Tender, Lungs Clear, Normal Breath Sounds, No Accessory Muscle Use, No Respiratory Distress Cardiovascular: Regular Rate, Rhythm, No JVD, No Murmur, Normal Peripheral Pulses, Gallop/S3 Gastrointestinal: Normal Bowel Sounds, No Organomegaly, No Pulsatile Mass, Non Tender, Soft Back: Normal Inspection, No CVA Tenderness, No Vertebral Tenderness Extremity: Normal Capillary Refill, Normal Inspection, Normal Range of Motion, Non Tender, No Calf Tenderness, Pedal Edema (mild) Neurologic/Psychiatric: Alert, Oriented x3, No Motor/Sensory Deficits, Normal Mood/Affect Skin: Normal Color, Warm/Dry Lymphatic: No Adenopathy Results Results/Procedures Labs Laboratory Tests 10/05/18 14:25 2 05:00 Patient resulted labs reviewed. Clinical Quality Measures AMI/AHF: ASA po Prior to arrival: Yes (324 PER EMS) DVT/VTE Risk/Contraindication: Risk Factor Score Per Nursin RFS Level Per Nursing on Admit: 4+=Very High DAPHNEY VU MD Oct 06, 2018 14:17
[2018-10-06] MEDS: cefTRIAXone FOR IV USE 1,000 MG in WATER (STERILE) FOR INJECTION 10 ML IV SCH (15:04)
[2018-10-06 15:52] VITALS: BP 127/52
[2018-10-06] MEDS ORDERED: cefTRIAXone 1,000 MG/SWFI 10 ML IV PUSH IV SCH ×2 (16:00)
--- NOTE | 2018-10-06 16:00 | Oncology Consultation ---
Visit Information Visit Information Date of Admission Oct 05, 2018 at 15:40 Attending Physician Stephanie Aguirre DO Admitting Physician Charity Lemus DO Chief Complaint abnormal blood counts, ? CLL Interval History Mr. Bran is a 87 year old white man with h/o CAD, CABG x2 who was admitted for SOB, chest pain, CXR showed R base infiltration and prominent medium james. He also had fever fever 101 last night. He was treated with IV antibiotics for presumable pneumonia and also Lovenox for possible small CA. He was noticed to have WBC over 57,000 predominant atypical lymphocytes 80-90% , Hb 10 and Plt 98k. We are called for diagnosis and management. According to the record here, he had near normal WBC in 2011. I consulted the patient on: 10/06/18 15:54 Time Seen by Provider: 15:55 Review of Systems Constitutional: weakness Respiratory: short of breath Gastrointestinal: no symptoms reported Genitourinary: no symptoms reported Psychiatric/Neurological: No Symptoms Reported Health Status Allergies Uncoded Allergies: ZOLOFT, PENICILLIN (Allergy, Mild, 07/27/11) Home Medications Amlodipine Besylate (Amlodipine Besylate) 5 Mg Tablet, 5 MG PO DAILY, (Reported) Ascorbic Acid (Vitamin C 500 Mg) 500 Mg Tablet, 500 MG PO BID, (Reported) Aspirin (Aspirin Ec 81 Mg) 81 Mg Tabec, 81 MG PO DAILY, (Reported) Carvedilol (Carvedilol) 6.25 Mg Tablet, 1 EACH PO BID, (Reported) Cholecalciferol (Vitamin D3) (Vitamin D) 10,000 Unit Capsule, 10,000 UNIT PO DAILY, (Reported) Doxazosin Mesylate (Doxazosin Mesylate) 4 Mg Tablet, 4 MG PO DAILY, (Reported) Furosemide (Furosemide) 40 Mg Tablet, 1 EACH PO 3xweekly, (Reported) [place] 3 Polyunsat Fatty Acids (Fish Oil) 1,000 Mg Cap, 1,000 MG PO DAILY, ( Reported) Paroxetine Hcl (Paroxetine Hcl) 20 Mg Tablet, 20 MG PO DAILY, (Reported) Potassium Chloride (Klor-Con 10 Tablet) 10 Meq Tablet.sa, 1 EACH PO 3xweekly, ( Reported) Simvastatin (Simvastatin) 40 Mg Tablet, 40 MG PO DAILY, (Reported) Sulindac (Sulindac) 200 Mg Tablet, 200 MG PO BID, (Reported) XFD-Xkebgw-Objmcx Hx Patient Social History Employed/Student: retired Alcohol Use: Denies Use Recreational Drug Use: No Smoking Status: Former Smoker Recent Foreign Travel: No Contact w/other who traveled: No Recent Infectious Disease Expo: No Recent Hopitalizations: No Physical Abuse Screen: No Sexual Abuse: No Immunizations Up To Date Date of Influenza Vaccine: Jun 09, 2011 Family Medical History Family Medical Hx Noncontributory to his current condition Physical Exam Vital Signs Vital Signs - First Documented 10/05/18 10/05/18 14:19 14:20 Temp 98.0 Pulse 77 Resp 20 B/P (MAP) 163/97 (119) Pulse Ox 89 O2 Delivery Room Air O2 Flow Rate 2.00 Capillary Refill : Less Than 3 Seconds Height, Weight, BMI Height: 5'8.00" Weight: 219lbs. 8.0oz. 99.906099jl; BMI Method:Stated General Appearance: No Apparent Distress HEENT: PERRL/EOMI Neck: Non Tender, Supple Data Review Labs Laboratory Tests 10/07/18 05:58 Laboratory Tests 10/05/18 14:25: White Blood Count 57.2*H, Red Blood Count 3.08L, Hemoglobin 10.7L, Hematocrit 31L, Mean Corpuscular Volume 102H, Mean Corpuscular Hemoglobin 35H, Red Cell Distribution Width 17.3H, Platelet Count 106L, Mean Platelet Volume 10.7H, Prothrombin Time 16.2H, Glucose Level 144H, Aspartate Amino Transf (AST/SGOT) 47H, Myoglobin 281.0H, Troponin I 0.314*H, Total Protein 6.2L 10/05/18 19:30: Troponin I 0.427*H 10/06/18 01:30: Troponin I 0.447*H 10/06/18 05:00: White Blood Count 61.7*H, Red Blood Count 2.91L, Hemoglobin 9.8L, Hematocrit 30L , Mean Corpuscular Volume 103H, Red Cell Distribution Width 17.5H, Platelet Count 94L, Mean Platelet Volume 11.8H, Glucose Level 124H, Aspartate Amino Transf (AST/SGOT) 41H, Troponin I 0.390*H, Total Protein 5.5L, Calcium Level 8.4L, HDL Cholesterol 25L 10/07/18 05:58: White Blood Count 88.2*H, Red Blood Count 2.76L, Hemoglobin 9.6L, Hematocrit 28L , Mean Corpuscular Volume 103H, Mean Corpuscular Hemoglobin 35H, Red Cell Distribution Width 17.8H, Platelet Count 90L, Mean Platelet Volume 10.9H, Potassium Level 3.1L, Blood Urea Nitrogen 19H, Creatinine 1.34H, Glucose Level 113H, Calcium Level 8.4L, Aspartate Amino Transf (AST/SGOT) 40H, B-Type Natriuretic Peptide 396.3H, Total Protein 5.5L Impression & Plan Impression & Plan IMP: 1. 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 2. Pneumonia with fever and CRX infiltration, 3. CAD, s/p CABG x 2. Chest pain, small CA on Lovenox. 4. 87 year old man 5. 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 Plan: 1. Flowcytometry from the peripheral blood for confirmation of the diagnosis. We can most likely get the diagnosis from the flowcytometry. 2. I would not do bone marrow at this point. 3. Check serum Ig levels. 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 If so, he will benefit IVIG infusion. 4. Aggressively treating infection as you do now 5. Cardiology to determine the future anticoagulation. 6. Transfuse RBC only if Hb below 7 or bleeding. DAVI JERRY MD Oct 06, 2018 16:00
[2018-10-06] MEDS: FUROSEMIDE 40 MG/4 ML INJ (LASIX) IVP SCH (17:05)
--- NOTE | 2018-10-06 18:03 | NUR ---
1743 received call from [facility], pt had 11 beats of V-tach. Stat EKG performed: Sinus rhythm, ventricular premature complex, right bundle branch block, HR 91. [address] Bryant of results. Orders received to give scheduled carvedilol now instead of at 2100 and continue to monitor pt condition.
[2018-10-06 20:00] VITALS: BP 145/68
[2018-10-07 00:55] VITALS: BP 165/80
[2018-10-07 04:00] VITALS: BP 120/76
[2018-10-07 06:23] LABS: HEMOGLOBIN 9.6 G/DL (13.3-17.7); MEAN PLATELET VOLUME 10.9 FL (7.4-10.4); RED CELL DISTRIBUTION WIDTH 17.8 % (10.0-14.5)
[2018-10-07 06:24] LABS: WHITE BLOOD COUNT 88.2 10^3/uL (4.3-11.0)
[2018-10-07] MEDS: ENOXAPARIN 100 MG/1 ML (LOVENOX) SYR SC SCH (06:24)
[2018-10-07] MEDS: FUROSEMIDE 40 MG/4 ML INJ (LASIX) IVP SCH ×2 (06:24→16:25)
--- NOTE | 2018-10-07 06:42 | NUR ---
0625- CRITICAL RESULT WBC-88.2. 0641- SPOKE WITH DR. VU AND INFORMED HIM OF CRITCAL RESULT. ALSO INFORMED HIM THAT PT HAS BEEN SWEATY AND SOB THIS AM, THAT VITAL SIGNS ARE STABLE. NO NEW ORDERS AT THIS TIME. WILL CONTINUE TO MONITOR PT.
[2018-10-07 06:43] LABS: ALBUMIN 3.6 GM/DL (3.2-4.5); BILIRUBIN,TOTAL 0.5 MG/DL (0.1-1.0); CALCIUM 8.4 MG/DL (8.5-10.1); CREATININE SERUM 1.34 MG/DL (0.60-1.30); POTASSIUM 3.1 MMOL/L (3.6-5.0); TOTAL PROTEIN 5.5 GM/DL (6.4-8.2)
[2018-10-07 08:00] VITALS: BP 155/78
--- NOTE | 2018-10-07 08:25 | Cardiology Progress Note ---
Subjective Date Seen by Provider: Oct 07, 2018 Time Seen by Provider: 08:23 Subjective/Events-last exam patient is laying down in bed, still having shortness of breath, reporting that it is worse today. Review of Systems General: No Chills, No Night Sweats, No Fatigue, No Malaise, No Appetite, No Other HEENT: No Head Aches, No Visual Changes, No Eye Pain, No Ear Pain, No Dysphasia , No Sinus Congestion, No Post Nasal Drip, No Sore Throat, No Other Pulmonary: Dyspnea; No Cough, No Pleuritic Chest Pain, No Other Cardiovascular: No: Chest Pain, Palpitations, Orthopnea, Paroxysmal Noc. Dyspnea, Edema, Lt Headedness, Other Focused Exam Lactate Level 10/05/18 14:25: Lactic Acid Level 1.93 Objective-Cardiology Exam Last Set of Vital Signs Vital Signs 10/07/18 08:00 Temp 98.5 Pulse 92 Resp 24 B/P (MAP) 155/78 (103) Pulse Ox 94 O2 Delivery Nasal Cannula O2 Flow Rate 2.00 Capillary Refill : Less Than 3 Seconds I&O Intake and Output 10/07/18 00:00 Intake Total 1480 ml Output Total 975 ml Balance 505 ml Intake Oral 1480 ml Output Urine Total 975 ml # Voids 2 # Bowel Movements 1 General: Alert, Oriented X3, Cooperative, Moderate Distress HEENT: Atraumatic, PERRLA Neck: Supple, No JVD, No Thyromegaly Lungs: Normal Air Movement, Other (bilateral rhonchi) Heart: Regular Rate, Normal S1, Normal S2, No Murmurs Abdomen: Normal Bowel Sounds, Soft, No Tenderness, No Hepatosplenomegaly, No Masses Extremities: No Clubbing, No Cyanosis, Normal Pulses, No Tenderness/Swelling, Other (trace edema) Skin: No Rashes, No Breakdown, No Significant Lesion Neuro: Normal Gait, Normal Speech, Strength at 5/5 X4 Ext, Normal Tone, Sensation Intact Psych/Mental Status: Mental Status NL, Mood NL Results Lab Laboratory Tests 10/07/18 05:58 A/P-Cardiology Admission Diagnosis Chest pain Non-ST elevation myocardial infarction Coronary artery disease Hypertension Hyperlipidemia Assessment/Plan Non-ST elevation myocardial infarction, conservative management at this time, no chest pain was noted at this time. Congestive heart failure, acute left ventricular systolic dysfunction, inferior wall is akinetic to severely hypokinetic, ejection fraction 40-45 percent, continue on Lasix and monitor next Hypokalemia, secondary to Lasix, I will replace and monitor Pneumonia on chest x-ray, started on Rocephin and Zithromax, managed by primary care team Leukocytosis, WBC around 80,000, anemia and thrombocytopenia, seen and evaluated by Dr. 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 Cardoza, had an angiogram about 5 years ago and treated conservatively Hypertension, continue to monitor blood pressure at this time Hyperlipidemia, has been on simvastatin, monitor lipids Benign prostatic hypertrophy Parkinson disease Clinical Quality Measures AMI/AHF: ASA po Prior to arrival: Yes (324 PER EMS) DVT/VTE Risk/Contraindication: Risk Factor Score Per Nursin RFS Level Per Nursing on Admit: 4+=Very High DAVINA YAN MD Oct 07, 2018 08:25
[2018-10-07] MEDS ORDERED: KCL 20 MEQ TAB (K-DUR) PO NR (08:30)
[2018-10-07] MEDS: RT-ALBUTEROL SULF 2.5 MG/3 ML PRE-MIX VIAL INH SCH ×5 (08:57→20:11)
[2018-10-07] MEDS ORDERED: AZITHROMYCIN INJECTION 500 MG in NS (IVPB) 250 ML IV SCH (09:00)
[2018-10-07] MEDS ORDERED: NS IV 500 ML 0 ML ONE (09:52)
[2018-10-07] MEDS: NS IV 1000 ML 1,000 ML IV SCH (10:01)
[2018-10-07] MEDS: SIMvastatin 40 MG (ZOCOR) TAB PO SCH (10:04)
[2018-10-07] MEDS: POTASSIUM CL 10MEQ/50ML IVPB 50 ML IV SCH ×4 (10:04→14:32)
[2018-10-07] MEDS: OMEGA 3 (FISH OIL) 1000 MG CAP PO SCH (10:05)
[2018-10-07] MEDS: LOSARTAN 50 MG (COZAAR) TAB PO SCH (10:05)
[2018-10-07] MEDS: NITROGLYCERIN 2% OINT 1 GM UNIT DOSE PACKET TOP SCH ×2 (10:05→20:53)
[2018-10-07] MEDS: CARVEDILOL 12.5 MG (COREG) TABLET PO SCH ×2 (10:05→20:53)
[2018-10-07] MEDS: ASPIRIN 325 MG (5 GR) TABLET PO SCH (10:09)
--- NOTE | 2018-10-07 10:25 | NUR ---
I received a call from community health education coordinator that pt had just received a very poor report from . Pt shared with me that DR had just told him he had a fast moving leukemia. I allowed pt to process and we also completed some life review pts daughter called and I also spoke with her on the phone. Pt is coping well, pt expressed appreciation for visit. I will continue to follow.
--- NOTE | 2018-10-07 11:07 | Oncology Progress Note ---
Subjective Date Seen by a Provider: Oct 07, 2018 Time Seen by a Provider: 11:02 Subjective/Events-last exam Reviewed his peripheral blood smear with pathologist. 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 Flow cytometry results pending. WBC rapidly increasing. 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 He felt he had a good life and he wants to go peacefully. However, he wants to discuss with his daughter who is in [place] now for a conference. His son lives in [facility]. We have left the message to his family member to have further discussion. 2pm update: We just had a conference call with patient and his daughter. Patient told his daughter that he does NOT want to have chemo treatment. And his daughter respects his decision. She will try to find a flight from [place] to here tomorrow and hope to make to the hospital on Sun. I told her that patient's disease progress fast and she is aware of the time essence. We will keep patient here on 4th floor till his daughter arrival. I have updated Dr Fitzpatrick about the case. She will arrange home hospice and discuss DNR when his daughter arrives here. Thank you very much. 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 We do not need bone marrow exam since it will not change the outcome at this point. Data Review Labs Laboratory Tests 10/07/18 05:58 Laboratory Tests 10/05/18 14:25: White Blood Count 57.2*H, Red Blood Count 3.08L, Hemoglobin 10.7L, Hematocrit 31L, Mean Corpuscular Volume 102H, Mean Corpuscular Hemoglobin 35H, Red Cell Distribution Width 17.3H, Platelet Count 106L, Mean Platelet Volume 10.7H, Prothrombin Time 16.2H, Glucose Level 144H, Aspartate Amino Transf (AST/SGOT) 47H, Myoglobin 281.0H, Troponin I 0.314*H, Total Protein 6.2L 10/05/18 19:30: Troponin I 0.427*H 10/06/18 01:30: Troponin I 0.447*H 10/06/18 05:00: White Blood Count 61.7*H, Red Blood Count 2.91L, Hemoglobin 9.8L, Hematocrit 30L , Mean Corpuscular Volume 103H, Red Cell Distribution Width 17.5H, Platelet Count 94L, Mean Platelet Volume 11.8H, Glucose Level 124H, Aspartate Amino Transf (AST/SGOT) 41H, Troponin I 0.390*H, Total Protein 5.5L, Calcium Level 8.4L, HDL Cholesterol 25L 10/07/18 05:58: White Blood Count 88.2*H, Red Blood Count 2.76L, Hemoglobin 9.6L, Hematocrit 28L , Mean Corpuscular Volume 103H, Mean Corpuscular Hemoglobin 35H, Red Cell Distribution Width 17.8H, Platelet Count 90L, Mean Platelet Volume 10.9H, Potassium Level 3.1L, Blood Urea Nitrogen 19H, Creatinine 1.34H, Glucose Level 113H, Calcium Level 8.4L, Aspartate Amino Transf (AST/SGOT) 40H, B-Type Natriuretic Peptide 396.3H, Total Protein 5.5L 10/07/18 12:55: Physical Exam Vital Signs Vital Signs - First Documented 10/05/18 10/05/18 14:19 14:20 Temp 98.0 Pulse 77 Resp 20 B/P (MAP) 163/97 (119) Pulse Ox 89 O2 Delivery Room Air O2 Flow Rate 2.00 Capillary Refill : Less Than 3 Seconds Height, Weight, BMI Height: 5'8.00" Weight: 219lbs. 8.0oz. 99.177495gh; BMI Method:Stated General Appearance: Mild Distress HEENT: PERRL/EOMI Neck: Supple Respiratory: Chest Non Tender, No Accessory Muscle Use, No Respiratory Distress Gastrointestinal: Non Tender, Soft Extremity: Non Tender, No Calf Tenderness, No Pedal Edema Neurologic/Psychiatric: Alert, Oriented x3 Focused Exam Lactate Level 10/05/18 14:25: Lactic Acid Level 1.93 Impression & Plan Impression & Plan IMP: 1. Significant leukocytosis with circulating myeloid blasts over 50%. 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 2. Pneumonia with fever and CRX infiltration and hypoxia. 3. CAD, s/p CABG x 2. Chest pain, small [place] on Lovenox. 4. 87 year old man, live by himself prior to this admission. 5. Normocytic anemia and thrombocytopenia . Plan: 1. F/u flowcytometry from the peripheral blood for confirmation of the diagnosis. 2. I would wait for the patient and family decisions about what they would like to do before I put patient into a bone marrow exam. If he decides to go for the chemotherapy, he has about 20% probability of response and it will last for possible a few month. 3. I will discuss with Dr Bryant about reduce or stop his Lovenox since he will have bleeding tendency. 4. Aggressively treating infection as you do now 5. I will need to discuss with patient about DNR once we can get hold of his family. 6. Pt prefers to at home if possible. Clinical Quality Measures AMI/AHF: ASA po Prior to arrival: Yes (324 PER EMS) DVT/VTE Risk/Contraindication: Risk Factor Score Per Nursin RFS Level Per Nursing on Admit: 4+=Very High DAVI JERRY MD Oct 07, 2018 11:07
[2018-10-07] MEDS ORDERED: ASPI-983 PO (11:21)
[2018-10-07] MEDS ORDERED: TERA10CA3 PO (11:21)
[2018-10-07] MEDS ORDERED: LOSA50TA63 PO (11:21)
[2018-10-07] MEDS ORDERED: SIMV40TA4 PO (11:21)
[2018-10-07] MEDS ORDERED: CARB1TAB41 PO (11:21)
[2018-10-07] MEDS ORDERED: FURO40TA4 PO (11:21)
[2018-10-07] MEDS ORDERED: ASCO500T7 PO (11:21)
[2018-10-07] MEDS ORDERED: CYAN10007 PO (11:21)
[2018-10-07] MEDS ORDERED: PARO20TA5 PO (11:21)
[2018-10-07] MEDS ORDERED: CARV12.53 PO (11:21)
[2018-10-07] MEDS ORDERED: POTA10TA14 PO (11:21)
[2018-10-07] MEDS ORDERED: OMEP20CA12 PO (11:21)
[2018-10-07] MEDS ORDERED: CHOL10007 PO (11:21)
[2018-10-07] MEDS ORDERED: PYRI100T2 PO (11:21)
--- NOTE | 2018-10-07 11:24 | NUR ---
WENT OVER THE EXT MED HX WITH THE PATIENT, HE VERIFIED HOW HE TAKES EACH MEDICATION AND LISTED HIS OTC MEDS. OTC MEDS INCLUDE: VITAMIN C DAILY ASPIRIN 81MG EVERY OTHER DAY VITAMIN D 2 DAILY B12 DAILY B6 DAILY
[2018-10-07 12:00] VITALS: BP 115/66
[2018-10-07 13:13] LABS: ABSOLUTE RETIC # 37 10e9/L (24-90); RETICULOCYTE % 1.29 % (0.50-2.40)
[2018-10-07] MEDS: cefTRIAXone FOR IV USE 1,000 MG in WATER (STERILE) FOR INJECTION 10 ML IV SCH (15:43)
--- NOTE | 2018-10-07 16:13 | NUR ---
Pastoral care visit, pts alejandro was at bedside, pt shared and was happy that his daughter will be in Sunday. Pt invited me back tomorrow, will continue to monitor and provide support.
[2018-10-07 16:15] VITALS: BP 133/72
--- NOTE | 2018-10-07 16:18 | NUR ---
Pt lives alone but states his daughter is flying here to discuss his condition and assist with continued care plans.
--- NOTE | 2018-10-07 19:12 | Progress Note (SOAP) ---
Subjective Date Seen by a Provider: Oct 07, 2018 Time Seen by a Provider: 12:20 Subjective/Events-last exam Fwup non STEMI, pneumonia, Acute systolic CHF, Hypertension, Parkinson's, leukocytosis suspicious for acute leukemia. 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 I talked with his daughter on the phone as well--she plans on leaving tomorrow for [place]. Focused Exam Lactate Level 10/05/18 14:25: Lactic Acid Level 1.93 Objective Exam Vital Signs Date Time Temp Pulse Resp B/P (MAP) Pulse Ox O2 Delivery O2 Flow Rate FiO2 10/07/18 16:15 98.4 96 24 133/72 (92) 96 Nasal Cannula 2.00 10/07/18 13:00 78 10/07/18 12:00 98.2 76 22 115/66 (82) 95 Nasal Cannula 3.00 10/07/18 08:05 Nasal Cannula 2.00 10/07/18 08:00 98.5 92 24 155/78 (103) 94 Nasal Cannula 2.00 10/07/18 07:00 96 10/07/18 04:00 98.3 89 42 120/76 (91) 96 Nasal Cannula 2.00 10/07/18 01:00 87 10/07/18 00:55 98.7 94 20 165/80 (108) 96 Nasal Cannula 2.00 10/06/18 20:00 100.0 84 24 145/68 (93) 92 Nasal Cannula 2.00 10/06/18 20:00 Nasal Cannula 2.00 10/06/18 19:23 88 Nasal Cannula 2.00 I & O 10/07/18 07:00 Intake Total 1680 ml Output Total 975 ml Balance 705 ml Capillary Refill : Less Than 3 Seconds General Appearance: No Apparent Distress Neck: Supple Respiratory: Decreased Breath Sounds (coarse) Cardiovascular: Regular Rate, Rhythm, Systolic Murmur Gastrointestinal: normal bowel sounds, non tender, soft Extremity: Non Tender, No Calf Tenderness, No Pedal Edema Neurologic/Psychiatric: Alert, Oriented x3 Results Lab Laboratory Tests 10/07/18 05:58: White Blood Count 88.2*H, Red Blood Count 2.76L, Hemoglobin 9.6L, Hematocrit 28L , Mean Corpuscular Volume 103H, Mean Corpuscular Hemoglobin 35H, Mean Corpuscular Hemoglobin Concent 34, Red Cell Distribution Width 17.8H, Platelet Count 90L, Mean Platelet Volume 10.9H, Sodium Level 143, Potassium Level 3.1L, Chloride Level 106, Carbon Dioxide Level 27, Anion Gap 10, Blood Urea Nitrogen 19H, Creatinine 1.34H, Estimat Glomerular Filtration Rate 50, BUN/Creatinine Ratio 14, Glucose Level 113H, Calcium Level 8.4L, Corrected Calcium 8.7, Total Bilirubin 0.5, Aspartate Amino Transf (AST/SGOT) 40H, Alanine Aminotransferase ( ALT/SGPT) 40, Alkaline Phosphatase 55, B-Type Natriuretic Peptide 396.3H, Total Protein 5.5L, Albumin 3.6 10/07/18 12:55: Microbiology 10/05/18 Blood Culture - Preliminary, Resulted No growth Assessment/Plan Assessment/Plan Assess & Plan/Chief Complaint 1. Acute Non STEMI--cardiology managing medically 2. Acute Pneumonia--on rocephin/zithromax 3. Acute Systolic CHF--on lasix 4. AML--patient has opted for no treatment so will pursue socially responsible investment adviser and hospice 5. Hypertension--home meds resumed 6. Parkinson's--stable Clinical Quality Measures AMI/AHF: ASA po Prior to arrival: Yes (324 PER EMS) DVT/VTE Risk/Contraindication: Risk Factor Score Per Nursin RFS Level Per Nursing on Admit: 4+=Very High ISHA LEAVITT DO Oct 07, 2018 19:12
[2018-10-07 19:21] VITALS: BP 138/76
[2018-10-08] VITALS (8 sets, daily range): BP systolic 118–152; BP diastolic 53–72
[2018-10-08] MEDS: FUROSEMIDE 40 MG/4 ML INJ (LASIX) IVP SCH ×2 (06:03→18:38)
[2018-10-08] MEDS: RT-ALBUTEROL SULF 2.5 MG/3 ML PRE-MIX VIAL INH SCH ×4 (06:26→20:58)
[2018-10-08 06:41] LABS: HEMOGLOBIN 9.2 G/DL (13.3-17.7); MEAN PLATELET VOLUME 10.9 FL (7.4-10.4); RED CELL DISTRIBUTION WIDTH 17.8 % (10.0-14.5)
[2018-10-08 06:47] LABS: WHITE BLOOD COUNT 107.8 10^3/uL (4.3-11.0)
[2018-10-08 07:01] LABS: CALCIUM 8.2 MG/DL (8.5-10.1); CREATININE SERUM 1.2 MG/DL (0.60-1.30); MAGNESIUM 1.8 MG/DL (1.8-2.4)
--- NOTE | 2018-10-08 08:12 | Cardiology Progress Note ---
Subjective Date Seen by Provider: Oct 08, 2018 Time Seen by Provider: 08:10 Subjective/Events-last exam Patient is in bed, complaining of some dyspnea. Denies any chest pain. Focused Exam Lactate Level 10/05/18 14:25: Lactic Acid Level 1.93 Objective-Cardiology Exam Last Set of Vital Signs Vital Signs 10/08/18 10/08/18 10/08/18 04:00 06:27 07:00 Temp 98.8 Pulse 78 Resp 18 B/P (MAP) 138/65 (89) Pulse Ox 91 O2 Delivery Nasal Cannula O2 Flow Rate 3.00 Capillary Refill : Less Than 3 Seconds I&O Intake and Output 10/08/18 00:00 Intake Total 1390 ml Output Total 650 ml Balance 740 ml Intake Oral 1390 ml Output Urine Total 650 ml # Voids 4 # Bowel Movements 2 General: Alert, Oriented X3, Cooperative, Moderate Distress HEENT: Atraumatic, PERRLA Neck: Supple, No JVD, No Thyromegaly Lungs: Normal Air Movement, Other (bilateral rhonchi) Heart: Regular Rate, Normal S1, Normal S2, No Murmurs Abdomen: Normal Bowel Sounds, Soft, No Tenderness, No Hepatosplenomegaly, No Masses Extremities: No Clubbing, No Cyanosis, Normal Pulses, No Tenderness/Swelling, Other (trace edema) Skin: No Rashes, No Breakdown, No Significant Lesion Neuro: Normal Gait, Normal Speech, Strength at 5/5 X4 Ext, Normal Tone, Sensation Intact Psych/Mental Status: Mental Status NL, Mood NL Results Lab Laboratory Tests 10/08/18 05:59 A/P-Cardiology Admission Diagnosis Chest pain Non-ST elevation myocardial infarction Coronary artery disease Hypertension Hyperlipidemia Assessment/Plan Non-ST elevation myocardial infarction, conservative management at this time, no chest pain was noted at this time. Congestive heart failure, acute left ventricular systolic dysfunction, inferior wall is akinetic to severely hypokinetic, ejection fraction 40-45 percent, continue on Lasix and monitor Hypokalemia, secondary to Lasix,continue to replace and monitor. Pneumonia on chest x-ray, started on Rocephin and Zithromax, managed by primary care team Elevated WBC, likely AML. WBC count 107 this morning. Patient has opted not to treat. Dr. Chinchilla following. immigration services officer was contacted to discuss hospice. Coronary artery disease, history of CABG 4 done in 1981 and redo CABG 5 done in 1999, has been followed by Dr. Cardoza, had an angiogram about 5 years ago and treated conservatively Hypertension, continue to monitor blood pressure at this time Hyperlipidemia, has been on simvastatin, monitor lipids Benign prostatic hypertrophy Parkinson disease Clinical Quality Measures AMI/AHF: ASA po Prior to arrival: Yes (324 PER EMS) DVT/VTE Risk/Contraindication: Risk Factor Score Per Nursin RFS Level Per Nursing on Admit: 4+=Very High REJI PEREZ Oct 08, 2018 08:12
[2018-10-08] MEDS: CARVEDILOL 12.5 MG (COREG) TABLET PO SCH ×2 (09:05→20:51)
[2018-10-08] MEDS: OMEGA 3 (FISH OIL) 1000 MG CAP PO SCH (09:05)
[2018-10-08] MEDS: LOSARTAN 50 MG (COZAAR) TAB PO SCH (09:05)
[2018-10-08] MEDS: SIMvastatin 40 MG (ZOCOR) TAB PO SCH (09:05)
[2018-10-08] MEDS: NITROGLYCERIN 2% OINT 1 GM UNIT DOSE PACKET TOP SCH (09:06)
[2018-10-08] MEDS: AZITHROMYCIN 250 MG TAB (ZITHROMAX) PO SCH (09:06)
--- NOTE | 2018-10-08 10:44 | NUR ---
PALLIATIVE CARE RN in to meet patient. He had a great niece and [id number] in the room. Was informed that a daughter and granddaughter will be her tonight late and a son will be here on Sat/Sun. Patient would like to hold discussion until his daughter is present.
--- NOTE | 2018-10-08 11:29 | Cardiology Progress Note ---
Subjective Date Seen by Provider: Oct 08, 2018 Time Seen by Provider: 11:28 Subjective/Events-last exam Patient is laying down in bed, still having some chest pain, no palpitation, no syncope or near syncopal episodes. Review of Systems General: No Chills, No Night Sweats, No Fatigue, No Malaise, No Appetite, No Other HEENT: No Head Aches, No Visual Changes, No Eye Pain, No Ear Pain, No Dysphasia , No Sinus Congestion, No Post Nasal Drip, No Sore Throat, No Other Pulmonary: Dyspnea; No Cough, No Pleuritic Chest Pain, No Other Cardiovascular: Chest Pain; No: Palpitations, Orthopnea, Paroxysmal Noc. Dyspnea, Edema, Lt Headedness, Other Focused Exam Lactate Level 10/05/18 14:25: Lactic Acid Level 1.93 Objective-Cardiology Exam Last Set of Vital Signs Vital Signs 10/08/18 10/08/18 08:00 11:08 Temp 99.5 Pulse 89 Resp 24 B/P (MAP) 152/72 (98) Pulse Ox 93 O2 Delivery Nasal Cannula O2 Flow Rate 3.00 Capillary Refill : Less Than 3 Seconds I&O Intake and Output 10/08/18 00:00 Intake Total 1390 ml Output Total 650 ml Balance 740 ml Intake Oral 1390 ml Output Urine Total 650 ml # Voids 4 # Bowel Movements 2 General: Alert, Oriented X3, Cooperative, Moderate Distress HEENT: Atraumatic, PERRLA Neck: Supple, No JVD, No Thyromegaly Lungs: Normal Air Movement, Other (bilateral rhonchi) Heart: Regular Rate, Normal S1, Normal S2, No Murmurs Abdomen: Normal Bowel Sounds, Soft, No Tenderness, No Hepatosplenomegaly, No Masses Extremities: No Clubbing, No Cyanosis, Normal Pulses, No Tenderness/Swelling, Other (trace edema) Skin: No Rashes, No Breakdown, No Significant Lesion Neuro: Normal Gait, Normal Speech, Strength at 5/5 X4 Ext, Normal Tone, Sensation Intact Psych/Mental Status: Mental Status NL, Mood NL Results Lab Laboratory Tests 10/08/18 05:59 A/P-Cardiology Admission Diagnosis Chest pain Non-ST elevation myocardial infarction Coronary artery disease Hypertension Hyperlipidemia Assessment/Plan Non-ST elevation myocardial infarction, conservative management at this time, I will change nitroglycerin patch to Imdur and evaluate tolerance and response Congestive heart failure, acute left ventricular systolic dysfunction, inferior wall is akinetic to severely hypokinetic, ejection fraction 40-45 percent, continue on Lasix and monitor Hypokalemia, secondary to Lasix,continue to replace and monitor. Pneumonia on chest x-ray, started on Rocephin and Zithromax, managed by primary care team Elevated WBC, likely AML. WBC count 107 this morning. Patient has opted not to treat. Dr. Chinchilla following. adult services librarian was contacted to discuss hospice. Coronary artery disease, history of CABG 4 done in 1981 and redo CABG 5 done in 1999, has been followed by Dr. Cardoza, had an angiogram about 5 years ago and treated conservatively Hypertension, continue to monitor blood pressure at this time Hyperlipidemia, has been on simvastatin, monitor lipids Benign prostatic hypertrophy Parkinson disease Clinical Quality Measures AMI/AHF: ASA po Prior to arrival: Yes (324 PER EMS) DVT/VTE Risk/Contraindication: Risk Factor Score Per Nursin RFS Level Per Nursing on Admit: 4+=Very High DAVINA YAN MD Oct 08, 2018 11:29 am
[2018-10-08] MEDS ORDERED: ISOSORBIDE MONONITRATE 30 MG (IMDUR) TAB PO NR (11:30)
--- NOTE | 2018-10-08 14:00 | NUR ---
Pastoral care visit, pt shared feelings/fears in regards to his current situation, expressed gratitude his son and daughter are enroute. Pt shared his sophia and invited prayer, had prayer with pt.
[2018-10-08] MEDS: cefTRIAXone FOR IV USE 1,000 MG in WATER (STERILE) FOR INJECTION 10 ML IV SCH (15:26)
--- NOTE | 2018-10-08 17:05 | Progress Note (SOAP) ---
Subjective Date Seen by a Provider: Oct 08, 2018 Time Seen by a Provider: 12:30 Subjective/Events-last exam Fwup non STEMI, pneumonia, Acute systolic CHF, Hypertension, Parkinson's, AML. Feels better today. Objective Exam Vital Signs Date Time Temp Pulse Resp B/P (MAP) Pulse Ox O2 Delivery O2 Flow Rate FiO2 10/08/18 15:54 98.9 88 18 118/59 (78) 94 Nasal Cannula 2.00 10/08/18 14:56 91 Nasal Cannula 3.00 10/08/18 12:00 99.4 85 24 125/60 (81) 92 Nasal Cannula 2.00 10/08/18 11:08 93 Nasal Cannula 3.00 10/08/18 08:00 Nasal Cannula 2.00 10/08/18 08:00 99.5 89 24 152/72 (98) 92 Nasal Cannula 2.00 10/08/18 07:00 78 10/08/18 06:27 91 Nasal Cannula 3.00 10/08/18 04:00 98.8 83 18 138/65 (89) 93 Nasal Cannula 2.00 10/08/18 01:00 72 10/08/18 00:00 98.4 77 22 128/59 (82) 93 Nasal Cannula 2.00 10/07/18 20:11 93 Nasal Cannula 2.00 10/07/18 20:00 Nasal Cannula 2.00 10/07/18 19:21 98.3 95 23 138/76 (96) 96 Nasal Cannula 2.00 10/07/18 19:00 95 I & O 10/08/18 07:00 Intake Total 990 ml Output Total 700 ml Balance 290 ml Capillary Refill : Less Than 3 Seconds General Appearance: No Apparent Distress Neck: Supple Respiratory: Lungs Clear Cardiovascular: Regular Rate, Rhythm, Systolic Murmur, Gallop/S4 Gastrointestinal: normal bowel sounds, non tender, soft Extremity: Non Tender, No Calf Tenderness, No Pedal Edema Neurologic/Psychiatric: Alert, Oriented x3 Skin: Warm/Dry Results Lab Laboratory Tests 10/08/18 05:59: White Blood Count 107.8*H, Red Blood Count 2.68L, Hemoglobin 9.2L, Hematocrit 28L, Mean Corpuscular Volume 105H, Mean Corpuscular Hemoglobin 34, Mean Corpuscular Hemoglobin Concent 33, Red Cell Distribution Width 17.8H, Platelet Count 76L, Mean Platelet Volume 10.9H, Sodium Level 142, Potassium Level 3.0L, Chloride Level 106, Carbon Dioxide Level 25, Anion Gap 11, Blood Urea Nitrogen 17, Creatinine 1.20, Estimat Glomerular Filtration Rate 57, BUN/Creatinine Ratio 14, Glucose Level 97, Calcium Level 8.2L, Magnesium Level 1.8 Microbiology 10/05/18 Blood Culture - Preliminary, Resulted No growth Assessment/Plan Assessment/Plan Assess & Plan/Chief Complaint 1. Acute Non STEMI--cardiology managing medically 2. Acute Pneumonia--on rocephin/zithromax, repeat CXR 3. Acute Systolic CHF--on lasix 4. AML--patient has opted for no treatment so will pursue social media marketing manager and hospice, did discuss that will likely not be able to go home unless he has 24hr care, his daughter will be in late tonight and his son this weekend 5. Hypertension--home meds resumed 6. Parkinson's--stable 7. Weakness--start PT Clinical Quality Measures AMI/AHF: ASA po Prior to arrival: Yes (324 PER EMS) DVT/VTE Risk/Contraindication: Risk Factor Score Per Nursin RFS Level Per Nursing on Admit: 4+=Very High ISHA LEAVITT DO Oct 08, 2018 17:05
[2018-10-08] MEDS ORDERED: KCL 20 MEQ TAB (K-DUR) PO NR (17:15)
--- NOTE | 2018-10-08 18:03 | Oncology Progress Note ---
Subjective Date Seen by a Provider: Oct 08, 2018 Time Seen by a Provider: 17:58 Subjective/Events-last exam Pt is comfortably sleeping. His daughter should arrive tonight. Per nurse report, pt wants to go home once the daughter is here. Data Review Labs Laboratory Tests 10/08/18 05:59 Laboratory Tests 10/05/18 19:30: Troponin I 0.427*H 10/06/18 01:30: Troponin I 0.447*H 10/06/18 05:00: Troponin I 0.390*H, White Blood Count 61.7*H, Red Blood Count 2.91L, Hemoglobin 9.8L, Hematocrit 30L, Mean Corpuscular Volume 103H, Red Cell Distribution Width 17.5H, Platelet Count 94L, Mean Platelet Volume 11.8H, Glucose Level 124H, Calcium Level 8.4L, Aspartate Amino Transf (AST/SGOT) 41H, Total Protein 5.5L, HDL Cholesterol 25L 10/07/18 05:58: White Blood Count 88.2*H, Red Blood Count 2.76L, Hemoglobin 9.6L, Hematocrit 28L , Mean Corpuscular Volume 103H, Red Cell Distribution Width 17.8H, Platelet Count 90L, Mean Platelet Volume 10.9H, Glucose Level 113H, Calcium Level 8.4L, Aspartate Amino Transf (AST/SGOT) 40H, Total Protein 5.5L, Mean Corpuscular Hemoglobin 35H, Potassium Level 3.1L, Blood Urea Nitrogen 19H, Creatinine 1.34H , B-Type Natriuretic Peptide 396.3H 10/07/18 12:55: 10/08/18 05:59: White Blood Count 107.8*H, Red Blood Count 2.68L, Hemoglobin 9.2L, Hematocrit 28L, Mean Corpuscular Volume 105H, Red Cell Distribution Width 17.8H, Platelet Count 76L, Mean Platelet Volume 10.9H, Potassium Level 3.0L, Calcium Level 8.2L Laboratory Tests 10/08/18 05:59 Physical Exam Vital Signs Vital Signs - First Documented 10/05/18 10/05/18 14:19 14:20 Temp 98.0 Pulse 77 Resp 20 B/P (MAP) 163/97 (119) Pulse Ox 89 O2 Delivery Room Air O2 Flow Rate 2.00 Capillary Refill : Less Than 3 Seconds Height, Weight, BMI Height: 5'8.00" Weight: 219lbs. 8.0oz. 99.847011ld; BMI Method:Stated General Appearance: No Apparent Distress Impression & Plan Impression & Plan IMP: 1. 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 2. Pneumonia with fever and CRX infiltration and hypoxia. 3. CAD, s/p CABG x 2. Chest pain, small CT on Lovenox. 4. 87 year old man, live by himself prior to this admission. 5. Normocytic anemia and thrombocytopenia due to #1 . 6. Parkinson disease Plan: 1. F/u flowcytometry from the peripheral blood for confirmation of the diagnosis. 2. Arrange hospice and home once his daughter arrives. 3. Pt prefers to at home if possible. Clinical Quality Measures AMI/AHF: ASA po Prior to arrival: Yes (324 PER EMS) DVT/VTE Risk/Contraindication: Risk Factor Score Per Nursin RFS Level Per Nursing on Admit: 4+=Very High DAVI JERRY MD Oct 08, 2018 18:03
[2018-10-08] MEDS: KCL 20 MEQ TAB (K-DUR) PO SCH (20:51)
[2018-10-08] MEDS: ACETAMINOPHEN 325 MG TABLET PO PRN (23:17)
[2018-10-08] MEDS: RT-ALBUTEROL SULF 2.5 MG/3 ML PRE-MIX VIAL INH PRN (23:25)
[2018-10-09 04:00] VITALS: BP 154/72
[2018-10-09] MEDS: ACETAMINOPHEN 325 MG TABLET PO PRN (04:05)
[2018-10-09] MEDS: RT-ALBUTEROL SULF 2.5 MG/3 ML PRE-MIX VIAL INH PRN (04:11)
[2018-10-09 05:48] LABS: HEMATOCRIT 26 % (40-54); HEMOGLOBIN 8.7 G/DL (13.3-17.7); MEAN CORPUSCULAR HEMOGLOBIN 34 PG (25-34); MEAN CORPUSCULAR HGB CONC 33 G/DL (32-36); MEAN CORPUSCULAR VOLUME 103 FL (80-99); PLATELET COUNT 75 10^3/uL (130-400)
[2018-10-09 05:59] LABS: WHITE BLOOD COUNT 145.9 10^3/uL (4.3-11.0)
[2018-10-09 06:06] LABS: CALCIUM 8.1 MG/DL (8.5-10.1); CREATININE SERUM 1.46 MG/DL (0.60-1.30); POTASSIUM 4.1 MMOL/L (3.6-5.0)
[2018-10-09] MEDS: FUROSEMIDE 40 MG/4 ML INJ (LASIX) IVP SCH ×2 (07:32→17:36)
[2018-10-09] MEDS: KCL 20 MEQ TAB (K-DUR) PO SCH ×2 (07:32→17:36)
[2018-10-09 08:00] VITALS: BP 123/64
[2018-10-09] MEDS: RT-ALBUTEROL SULF 2.5 MG/3 ML PRE-MIX VIAL INH SCH ×4 (08:03→19:33)
[2018-10-09] MEDS: AZITHROMYCIN 250 MG TAB (ZITHROMAX) PO SCH (08:37)
[2018-10-09] MEDS: ISOSORBIDE MONONITRATE 30 MG (IMDUR) TAB PO SCH (08:37)
[2018-10-09] MEDS: LOSARTAN 50 MG (COZAAR) TAB PO SCH (08:37)
[2018-10-09] MEDS: CARVEDILOL 12.5 MG (COREG) TABLET PO SCH ×2 (08:37→20:39)
[2018-10-09] MEDS: OMEGA 3 (FISH OIL) 1000 MG CAP PO SCH (08:37)
[2018-10-09] MEDS: SIMvastatin 40 MG (ZOCOR) TAB PO SCH (08:37)
--- NOTE | 2018-10-09 08:49 | Physical Therapy Evaluation ---
PT Evaluation-General Medical Diagnosis Admission Date Oct 05, 2018 at 15:40 Medical Diagnosis: non STEMI, pneumonia, Acute systolic CHF, Hypertension, Parkinson's, AML Onset Date: Oct 05, 2018 Therapy Diagnosis Therapy Diagnosis: decreased mobility, weakness Height/Weight Height (Feet): 5 Height (Inches): 8.00 Weight (Pounds): 219 Weight (Ounces): 8.0 Precautions Precautions/Isolations: Fall Prevention, Standard Precautions Referral Physician: Allan Reason for Referral: Evaluation/Treatment Medical History Pertinent Medical History: CABG, GERD, HTN, [place] Additional Medical History Surgeries: CABG, Gallbladder, Orthopedic Cardiac: Heart Attack, Hypertension Reproductive: No Sexually Transmitted Disease: No Genitourinary: Benign Prostatic Hyperpl Gastrointestinal: Gastroesophageal Reflux Musculoskeletal: Arthritis HEENT: Cataract Loss of Vision: Denies Hearing Impairment: Denies Psychosocial: Depression History of Blood Disorders: No Adverse Reaction to Blood Stephenson: No Current History Pt to ER via EMS with c/o chest pain. Reviewed History: Yes Social History Home: Single Level Current Living Status: Alone Entry Into Home: [facility] Prior/[facility] Prior Level of Function Therapy Code Descriptions/Definitions Functional [place] Measure: 0=Not Assessed/NA 4=Minimal Assistance 1=Total Assistance 5=Supervision or Setup 2=Maximal Assistance 6=Modified [place] 3=Moderate Assistance 7=Complete [place] Therapy Quality Codes: 6 Independent with activity with or without an assistive device 5 Patient requires set up or clean up by helper. Patient completes activity by themselves 4 Supervision or touching assist (CGA). [place] provide cues , steadying assist 3 The helper provides less than half the effort to complete the activity 2 The helper provides more than half the effort to complete the activity 1 Dependent. The helper does all the effort to complete an activity 7 Patient refused to complete or attempt activity 9 The patient did not perform the activity before the current illness or injury 88 Not attempted due to Medical conditions or safety concerns Functional Abilities and Goals: Independent: Patient completed the activities by him/herself, with or without an assistive device, with no assistance from a helper. Needed Some Help: Patient needed partial assistance from another person to complete activities. Dependent: A helper completed the activities for the patient. Unknown: Not Applicable: Bed Mobility: 7 Transfers (B,C,W/C) (FIM): 7 Gait: 6 Indoor Mobility (Ambulation): Independent Stairs: Not Applicalbe Prior Devices Use: Other-see list below Prior Device Use: Cane PT Evaluation-Current Subjective Pt is in bed finishing breakfast and agrees to PT. Pain Numeric Pain Scale: 0-No Pain Location: No Pain Reported Pt/Family Goals Pt to get stronger. Objective Patient Orientation: Person, Place, Situation, Normal For Age Attachments: SCD's, Oxygen (3L) ROM/Strength ROM Lower Extremities WNL Strength Lower Extremities Gross motor LLE (4+/5) RLE quads (4+/5) hamstrings (3+/5) DF/PF (4/5) Neuromuscular (Tone, Coordination, Reflexes) NT Sensory Vision: Hearing: Functional Sensation Right Lower Extremit: Intact Sensation Left Lower Extremity: Intact Transfers Therapy Code Descriptions/Definitions Functional [place] Measure: 0=Not Assessed/NA 4=Minimal Assistance 1=Total Assistance 5=Supervision or Setup 2=Maximal Assistance 6=Modified [place] 3=Moderate Assistance 7=Complete [place] Transfers (B, C, W/C) (FIM): 4 Scootin Rollin Supine to/from Sit: 5 Sit to/from Stand: 4 Gait Mode of Locomotion: Walk Anticipated Mode of Locomotion: Walk Gait (FIM): 4 Distance (FIM): 3=150 ft Distance: 150' Gait Level of Assist: 4 Gait Persons Needed: 1 Gait Assistive Device: FWW Comments/Gait Description Pt amb with forward flexed trunk and small step length. Balance Sitting Static: Good Sitting Dynamic: Good Standing Static: Good Standing Dynamic: Good Assessment/Needs Pt was able to perform bed mobility with SBA. Pt able to transfer sit<>stand from EOB to FWW with CGA. Pt amb 150' with FWW and CGA for safety with O2 4L. Pt returned to room and is up in recliner with all needs met. Rehab Potential: Fair Post Rehab Potential-Barriers: co-morbidities PT Short Term Goals Short Term Goals Time Frame: Oct 16, 2018 Transfers (B,C,W/C) (FIM): 6 Gait (FIM): 5 Distance (FIM): 3=150 ft Gait Distance Comment: 200' Gait Level of Assist: 5 Gait Assistive Device: FWW PT Plan Problem List Problem List: Activity Tolerance, Functional Strength, Safety, Balance, Gait, Transfer, Bed Mobility, ROM Treatment/Plan Treatment Plan: Continue Plan of Care Treatment Plan: Bed Mobility, Education, Functional Activity Gigi, Functional Strength, Gait, Safety, Therapeutic Exercise, Transfers Treatment Duration: Oct 16, 2018 Frequency: 6 times per week Estimated Hrs Per Day: .25 hour per day (15-30') Patient and/or Family Agrees t: Yes Safety Risks/Education Patient Education: Gait Training, Transfer Techniques, Correct Positioning, Safety Issues Teaching Recipient: Patient Teaching Methods: Demonstration, Discussion Response to Teaching: Reinforcement Needed Discharge Recommendations Plan Patient will perform bed mobility and transfer training, balance and endurance training, functional strengthening, stair training, gait training, and education , to improve functional mobility and independence at home. Therapy D/C Recommendations: Assisted Living, Long Term Placement Equpiment Recommendations-D/C: Front Wheeled Walker Time/GCodes Time In: 810 Time Out: 827 Total Billed Treatment Time: 17 Total Billed Treatment 1 visit EVlowC 17 min LUZ ELENA FOX PT Oct 09, 2018 08:48
--- NOTE | 2018-10-09 09:01 | Cardiology Progress Note ---
Subjective Date Seen by Provider: Oct 09, 2018 Time Seen by Provider: 08:20 Subjective/Events-last exam Patient is sitting up in chair, no new complaints. Continues to have some dyspnea. Objective-Cardiology Exam Last Set of Vital Signs Vital Signs 10/09/18 10/09/18 08:00 08:05 Temp 97.9 Pulse 95 Resp 18 B/P (MAP) 123/64 (83) Pulse Ox 92 O2 Delivery Nasal Cannula O2 Flow Rate 4.00 Capillary Refill : Less Than 3 Seconds I&O Intake and Output 10/09/18 00:00 Intake Total 905 ml Output Total 525 ml Balance 380 ml Intake Oral 905 ml Output Urine Total 525 ml # Voids 13 # Bowel Movements 1 General: Alert, Oriented X3, Cooperative, Moderate Distress HEENT: Atraumatic, PERRLA Neck: Supple, No JVD, No Thyromegaly Lungs: Normal Air Movement, Other (bilateral rhonchi) Heart: Regular Rate, Normal S1, Normal S2, No Murmurs Abdomen: Normal Bowel Sounds, Soft, No Tenderness, No Hepatosplenomegaly, No Masses Extremities: No Clubbing, No Cyanosis, Normal Pulses, No Tenderness/Swelling, Other (trace edema) Skin: No Rashes, No Breakdown, No Significant Lesion Neuro: Normal Gait, Normal Speech, Strength at 5/5 X4 Ext, Normal Tone, Sensation Intact Psych/Mental Status: Mental Status NL, Mood NL Results Lab Laboratory Tests 10/09/18 05:35 A/P-Cardiology Admission Diagnosis Chest pain Non-ST elevation myocardial infarction Coronary artery disease Hypertension Hyperlipidemia Assessment/Plan Non-ST elevation myocardial infarction, conservative management at this time, continue to monitor. Congestive heart failure, acute left ventricular systolic dysfunction, inferior wall is akinetic to severely hypokinetic, ejection fraction 40-45 percent, continue on Lasix and monitor Hypokalemia, secondary to Lasix,continue to replace and monitor. Pneumonia on chest x-ray, started on Rocephin and Zithromax, managed by primary care team AML, WBC rapidly elevating. Patient has opted not to treat. Dr. Chinchilla following. resident services supervisor was contacted to discuss hospice. Coronary artery disease, history of CABG 4 done in 1981 and redo CABG 5 done in 1999, has been followed by Dr. Yen, had an angiogram about 5 years ago and treated conservatively Hypertension, continue to monitor blood pressure at this time Hyperlipidemia, has been on simvastatin, monitor lipids Benign prostatic hypertrophy Parkinson disease Clinical Quality Measures AMI/AHF: ASA po Prior to arrival: Yes (324 PER EMS) DVT/VTE Risk/Contraindication: Risk Factor Score Per Nursin RFS Level Per Nursing on Admit: 4+=Very High REJI PEREZ Oct 09, 2018 09:01
--- NOTE | 2018-10-09 11:15 | NUR ---
Pastoral care visit, pt was seated in bedside chair and shared that he had recently showered/shaved and walked and was glad to our of bed. Pt shared about his dog "sassy" at home and that his daughter was due to hospital soon. Pt shared that he was hopeful that his daughter might remain with him so he can be home in his final days. I offered listening and support. Daughter and granddaughter arrived and I made acquaintance and left.
--- NOTE | 2018-10-09 11:43 | NUR ---
PALLIATIVE CARE RN has attempted several times to see patient..but waiting on daughter to arrive. She has finally arrived and I have shown her to his room. Will give them a bit of time to talk and then I will visit. I am hoping I can join Dr. Lemus on her rounds and then have the discharge POC discussion.
[2018-10-09 12:00] VITALS: BP 120/65
--- NOTE | 2018-10-09 13:09 | NUR ---
PALLIATIVE CARE/DISCHARGE PLANNING: This RN has arrived for the rounding of Dr. Lemus on this patient She has explained his medical status, explaining the TX and the new dx of AML which appears to be rapidly progressing. All agree that the patient cannot go home to care for himself. It is reported by Micki, daughter that she will be staying for the duration to care for him in his home. Lou Cao, an employee of this hospital, was help in the conversation called to help in the hospice discussion regarding hospice. After a bit of education and discussion,Micki has chosen to speak with two hospices so that she can make a decision. I have since called and spoken with [facility] and [facility]. They will call Micki to make an appointment time to meet.
--- NOTE | 2018-10-09 13:38 | Cardiology Progress Note ---
Subjective Date Seen by Provider: Oct 09, 2018 Time Seen by Provider: 13:37 Subjective/Events-last exam patient is sitting in a chair, feeling better, no chest pain was reported today Review of Systems General: No Chills, No Night Sweats, No Fatigue, No Malaise, No Appetite, No Other HEENT: No Head Aches, No Visual Changes, No Eye Pain, No Ear Pain, No Dysphasia , No Sinus Congestion, No Post Nasal Drip, No Sore Throat, No Other Pulmonary: Dyspnea; No Cough, No Pleuritic Chest Pain, No Other Cardiovascular: Edema; No: Chest Pain, Palpitations, Orthopnea, Paroxysmal Noc. Dyspnea, Lt Headedness, Other Objective-Cardiology Exam Last Set of Vital Signs Vital Signs 10/09/18 12:00 Temp 98.0 Pulse 87 Resp 22 B/P (MAP) 120/65 (83) Pulse Ox 95 O2 Delivery Nasal Cannula O2 Flow Rate 2.00 Capillary Refill : Less Than 3 Seconds I&O Intake and Output 10/09/18 00:00 Intake Total 905 ml Output Total 525 ml Balance 380 ml Intake Oral 905 ml Output Urine Total 525 ml # Voids 13 # Bowel Movements 1 General: Alert, Oriented X3, Cooperative, Moderate Distress HEENT: Atraumatic, PERRLA Neck: Supple, No JVD, No Thyromegaly Lungs: Normal Air Movement, Other (bilateral rhonchi) Heart: Regular Rate, Normal S1, Normal S2, No Murmurs Abdomen: Normal Bowel Sounds, Soft, No Tenderness, No Hepatosplenomegaly, No Masses Extremities: No Clubbing, No Cyanosis, Normal Pulses, No Tenderness/Swelling, Other (trace edema) Skin: No Rashes, No Breakdown, No Significant Lesion Neuro: Normal Gait, Normal Speech, Strength at 5/5 X4 Ext, Normal Tone, Sensation Intact Psych/Mental Status: Mental Status NL, Mood NL Results Lab Laboratory Tests 10/09/18 05:35 A/P-Cardiology Admission Diagnosis Chest pain Non-ST elevation myocardial infarction Coronary artery disease Hypertension Hyperlipidemia Assessment/Plan Non-ST elevation myocardial infarction, conservative management, no intervention is recommended, continue to monitor. Recurrent chest pain, started on long-acting nitroglycerin, feeling better, continue to monitor Congestive heart failure, acute left ventricular systolic dysfunction, inferior wall is akinetic to severely hypokinetic, ejection fraction 40-45 percent, continue on Lasix and monitor Hypokalemia, secondary to Lasix,continue to replace and monitor. Pneumonia on chest x-ray, started on Rocephin and Zithromax, managed by primary care team AML, WBC rapidly elevating. Patient has opted not to treat. Dr. Chinchilla following. network services project manager was contacted to discuss hospice. Coronary artery disease, history of CABG 4 done in 1981 and redo CABG 5 done in 1999, has been followed by Dr. Yen, had an angiogram about 5 years ago and treated conservatively Hypertension, continue to monitor blood pressure at this time Hyperlipidemia, has been on simvastatin, monitor lipids Benign prostatic hypertrophy Parkinson disease Clinical Quality Measures AMI/AHF: ASA po Prior to arrival: Yes (324 PER EMS) DVT/VTE Risk/Contraindication: Risk Factor Score Per Nursin RFS Level Per Nursing on Admit: 4+=Very High DAVINA YAN MD Oct 09, 2018 13:37
[2018-10-09] MEDS: cefTRIAXone FOR IV USE 1,000 MG in WATER (STERILE) FOR INJECTION 10 ML IV SCH (14:21)
[2018-10-09 15:29] VITALS: BP 112/61
--- NOTE | 2018-10-09 15:42 | NUR ---
PALLIATIVE CARE/DISCHARGE PLANNING: Patient and family have visited with [facility] and [facility]. They and have decided to go with [facility]. I have called [facility] and told them about their decision and then called [facility]. Clinical information faxed for planned discharge tomorrow to home with [facility] to assist in end of life care. No current needs at this time.
--- NOTE | 2018-10-09 15:49 | Occupational Therapy Eval ---
OT Evaluation-General/PLF Medical Diagnosis Admission Date Oct 05, 2018 at 15:40 Medical Diagnosis: non STEMI, pneumonia, Acute systolic CHF, Hypertension, Parkinson's, AML Onset Date: Oct 05, 2018 Therapy Diagnosis Therapy Diagnosis: weakness Height/Weight Height (Feet): 5 Height (Inches): 8.00 Weight (Pounds): 219 Weight (Ounces): 8.0 Precautions Precautions/Isolations: Fall Prevention, Standard Precautions Safety Interventions: Bed Exit Alarm Weight Bear Status Weight Bearing Restriction: Full Weight Bearing Location Restriction: L LE, R LE Referral Physician: Allan Referral Reason: Activity Tolerance, Self Care, Evaluation/Treatment, Strengthening/ROM Medical History Pertinent Medical History: CABG, GERD, HTN, [place] Current History 87 yrs old W/M admitted due to chest pain PMHx Lymphoblastic diffuse lymphoma, pneumonia, CAD, HTN, HLD, SOB CABG in 1981 & 1999 Reviewed History: Yes Social History Home: Single Level Current Living Status: Alone Entry Into Home: Ramp ADL-Prior Level of Function Therapy Code Descriptions/Definitions Functional [place] Measure: 0=Not Assessed/NA 4=Minimal Assistance 1=Total Assistance 5=Supervision or Setup 2=Maximal Assistance 6=Modified [place] 3=Moderate Assistance 7=Complete [place] Therapy Quality Codes: 6 Independent with activity with or without an assistive device 5 Patient requires set up or clean up by helper. Patient completes activity by themselves 4 Supervision or touching assist (CGA). [place] provide cues , steadying assist 3 The helper provides less than half the effort to complete the activity 2 The helper provides more than half the effort to complete the activity 1 Dependent. The helper does all the effort to complete an activity 7 Patient refused to complete or attempt activity 9 The patient did not perform the activity before the current illness or injury 88 Not attempted due to Medical conditions or safety concerns Functional Abilities and Goals: Independent: Patient completed the activities by him/herself, with or without an assistive device, with no assistance from a helper. Needed Some Help: Patient needed partial assistance from another person to complete activities. Dependent: A helper completed the activities for the patient. Unknown: Not Applicable: DME/Equipment: Grab Bars, Shower Hose Student Services Director Drive Self: No OT Current Status Subjective Pt in room sitting in recliner , daughter & [id number] sitting with him. Pt alert, cooperative, oriented x3. Pt agree for OT Eval & treatment. Pt states that, " I am doing good, little tired . Pain Location: No Pain Reported Mental Status/Objective Patient Orientation: Person, Place, Time, Situation, Normal For Age Attachments: Oxygen Current Glasses/Contacts: Yes Hearing Aids: No Hand Dominance: Right Upper Extremity ROM WFL Upper Extremity Coordination Intact Upper Extremity Sensation Intact Upper Extremity Strength MS in BUE -4/5 grossly graded. ADL-Treatment ADL-Current Pt participated in strengthening ex BUE , Needs Mod A in UB dressing, Max A in LB dressing, Min A in grooming activity. MS in BUE -4/5 grossly graded. Pt O2 dependent, has motorised W/C at home , Fatigue soon, -fair endurance. Unsteady standing balance & high risk of fall. Pt needs Bed side comode at night time for safety to prevent fall. Therapy Code Descriptions/Definitions Functional [place] Measure: 0=Not Assessed/NA 4=Minimal Assistance 1=Total Assistance 5=Supervision or Setup 2=Maximal Assistance 6=Modified [place] 3=Moderate Assistance 7=Complete [place] Therapy Quality Codes: 6 Independent with activity with or without an assistive device 5 Patient requires set up or clean up by helper. Patient completes activity by themselves 4 Supervision or touching assist (CGA). [place] provide cues , steadying assist 3 The helper provides less than half the effort to complete the activity 2 The helper provides more than half the effort to complete the activity 1 Dependent. The helper does all the effort to complete an activity 7 Patient refused to complete or attempt activity 9 The patient did not perform the activity before the current illness or injury 88 Not attempted due to Medical conditions or safety concerns Eating (FIM): 7 Grooming (FIM): 4 Bathing (FIM): 0 Upper Body Dressing (FIM): 3 Lower Body Dressing (FIM): 1 Toileting (FIM): 4 Transfers (B, C, W/C) (FIM): 4 Toilet/Commode Transfer (FIM): 4 Tub Transfer (FIM): 0 Shower Transfer (FIM): 0 Education OT Patient Education: Correct positioning, Instructions to caregiver, Safety issues Teaching Recipient: Patient Teaching Methods: Demonstration, Discussion Response to Teaching: Verbalize Understanding OT Short Term Goals Short Term Goals Time Frame: Oct 23, 2018 Grooming(FIM): 6 Bathing(FIM): 4 Bathing Location: L Arm, R Arm, L Upper Leg, R Upper Leg, L Lower Leg ( including foot), R Lower Leg (including foot), Chest, Abdomen, Buttocks, Perineal Area Upper Body Dressing(FIM): 6 Lower Body Dressing(FIM): 3 Toileting(FIM): 6 Transfers (B,C,W/C) (FIM): 66 Toilet/Commode Transfer(FIM): 6 Tub Transfer(FIM): 4 Shower Transfer(FIM): 6 Additional Short Term Goals: 1-Demonstrate ADL Tasks, 2-Verbalize Understanding , 3-ImproveStrength/Gigi 1=Demonstrate adherence to instructed precautions during ADL tasks. 2=Patient will verbalize/demonstrate understanding of assistive devices/ modifications for ADL. 3=Patient will improve strength/tolerance for activity to enable patient to perform ADL's. OT Racecourse Barrier Attendant Goals Racecourse Barrier Attendant Goals Time Frame: Nov 06, 2018 Eating (FIM): 7 Grooming(FIM): 7 Bathing(FIM): 6 Bathing Location: L Arm, R Arm, L Upper Leg, R Upper Leg, L Lower Leg ( including foot), Abdomen, Buttocks, Perineal Area Upper Body Dressing(FIM): 7 Lower Body Dressing(FIM): 6 Toileting(FIM): 7 Transfers (B,C,W/C) (FIM): 7 Toilet/Commode Transfer(FIM): 7 Tub Transfer(FIM): 5 Shower Transfer(FIM): 7 Additional Goals: 1-Demonstrate ADL Tasks, 2-Verbalize Understanding, 3- ImproveStrength/Gigi 1=Demonstrate adherence to instructed precautions during ADL tasks. 2=Patient will verbalize/demonstrate understanding of assistive devices/ modifications for ADL. 3=Patient will improve strength/tolerance for activity to enable patient to perform ADL's. OT Education/Plan Problem List/Assessment Assessment: Decreased Activ Tolerance, Decreased Safety Aware, Decreased UE Strength, Dependent Transfers, Impaired Bed Mobility, Impaired Funct Balance, Impaired Self-Care Skills Discharge Recommendations Plan/Recommendations: Continue POC Therapy D/C Recommendations: Home w/ Family Support Equpiment Recommendations-D/C: Extended Bath Bench, Extended Shower Sprayer, Studio Owner, Dressing Stick, [place], Toilet Riser Patient/Family Goals To return home Independently with daughter with AD. Treatment Plan/Plan of Care Treatment,Training & Education: Yes Patient would benefit from OT for education, treatment and training to promote independence in ADL's, mobility, safety and/or upper extremity function for ADL' s. Plan of Care: ADL Retraining, Caregiver Training, Functional Mobility, UE Funct Exercise/Act, UE Neuromus Re-Ed/Coord Treatment Duration: Nov 06, 2018 Frequency: 5 times per week Estimated Hrs Per Day: .25 hour per day Agreement: Yes Rehab Potential: Good Time/GCodes Start Time: 14:55 Stop Time: 15:28 Total Time Billed (hr/min): 33 Billed Treatment Time 1, EVM 15 min , ADLs 18 min. Total 33 minutes SHALOM ZARATE OT Oct 09, 2018 15:49
--- NOTE | 2018-10-09 16:21 | Oncology Progress Note ---
Subjective Date Seen by a Provider: Oct 09, 2018 Time Seen by a Provider: 16:16 Subjective/Events-last exam Pt's daughter and grand daughter arrived today. I discussed the AML diagnosis, prognosis with patient and his family. All questions and concerns were answered to their satisfaction. They decided to go with [facility]. Pt is comfortable in chair with O2 support. Data Review Labs Laboratory Tests 10/09/18 05:35 Laboratory Tests 10/07/18 05:58: White Blood Count 88.2*H, Red Blood Count 2.76L, Hemoglobin 9.6L, Hematocrit 28L , Mean Corpuscular Volume 103H, Mean Corpuscular Hemoglobin 35H, Red Cell Distribution Width 17.8H, Platelet Count 90L, Mean Platelet Volume 10.9H, Potassium Level 3.1L, Blood Urea Nitrogen 19H, Creatinine 1.34H, Glucose Level 113H, Calcium Level 8.4L, Aspartate Amino Transf (AST/SGOT) 40H, B-Type Natriuretic Peptide 396.3H, Total Protein 5.5L 10/07/18 12:55: 10/08/18 05:59: White Blood Count 107.8*H, Red Blood Count 2.68L, Hemoglobin 9.2L, Hematocrit 28L, Mean Corpuscular Volume 105H, Red Cell Distribution Width 17.8H, Platelet Count 76L, Mean Platelet Volume 10.9H, Potassium Level 3.0L, Calcium Level 8.2L 10/09/18 05:35: White Blood Count 145.9*H, Red Blood Count 2.56L, Hemoglobin 8.7L, Hematocrit 26L, Mean Corpuscular Volume 103H, Red Cell Distribution Width 18.0H, Platelet Count 75L, Mean Platelet Volume 11.0H, Blood Urea Nitrogen 22H, Creatinine 1.46H , Glucose Level 128H, Calcium Level 8.1L Physical Exam Vital Signs Vital Signs - First Documented 10/05/18 10/05/18 14:19 14:20 Temp 98.0 Pulse 77 Resp 20 B/P (MAP) 163/97 (119) Pulse Ox 89 O2 Delivery Room Air O2 Flow Rate 2.00 Capillary Refill : Less Than 3 Seconds Height, Weight, BMI Height: 5'8.00" Weight: 219lbs. 8.0oz. 99.876353ms; BMI Method:Stated General Appearance: No Apparent Distress, Mild Distress HEENT: PERRL/EOMI Neck: Supple Cardiovascular: Regular Rate, Rhythm Gastrointestinal: Non Tender, Soft Extremity: Non Tender, No Calf Tenderness, No Pedal Edema Neurologic/Psychiatric: Alert, Oriented x3 Impression & Plan Impression & Plan IMP: 1. AML, WBC rapidly increasing with over 90% circulating blasts. 2. Pneumonia with fever and CRX infiltration and hypoxia. 3. CAD, s/p CABG x 2. Chest pain, small OR on Lovenox. 4. 87 year old man, live by himself prior to this admission. 5. Normocytic anemia and thrombocytopenia due to #1 . 6. Parkinson disease Plan: 1. Hospice with [facility]. 2. Comfort care 3. Pt prefers to at home if possible. 4. Pt is DNR Clinical Quality Measures AMI/AHF: ASA po Prior to arrival: Yes (324 PER EMS) DVT/VTE Risk/Contraindication: Risk Factor Score Per Nursin RFS Level Per Nursing on Admit: 4+=Very High DAVI JERRY MD Oct 09, 2018 16:21
--- NOTE | 2018-10-09 17:43 | Progress Note (SOAP) ---
Subjective Date Seen by a Provider: Oct 09, 2018 Time Seen by a Provider: 12:35 Subjective/Events-last exam Fwup non STEMI, pneumonia, Acute systolic CHF, Hypertension, Parkinson's, AML. Sitting up in chair. C/O lower left abdominal pain last night. Objective Exam Vital Signs Date Time Temp Pulse Resp B/P (MAP) Pulse Ox O2 Delivery O2 Flow Rate FiO2 10/09/18 16:38 97 10/09/18 15:29 99.0 90 20 112/61 (78) 93 Nasal Cannula 2.00 10/09/18 12:00 98.0 87 22 120/65 (83) 95 Nasal Cannula 2.00 10/09/18 08:05 92 Nasal Cannula 4.00 10/09/18 08:00 97.9 95 18 123/64 (83) 93 Nasal Cannula 2.00 10/09/18 08:00 Nasal Cannula 2.00 10/09/18 07:00 80 10/09/18 04:13 92 Nasal Cannula 4.00 10/09/18 04:00 99.5 84 20 154/72 (99) 96 Nasal Cannula 2.00 10/09/18 01:00 80 10/08/18 23:27 92 Nasal Cannula 3.00 10/08/18 23:24 100.1 88 20 122/53 (76) 93 Nasal Cannula 2.00 10/08/18 20:46 87 20 124/68 (86) Nasal Cannula 10/08/18 20:00 98.9 89 22 132/64 (86) 93 Nasal Cannula 2.00 10/08/18 20:00 Nasal Cannula 2.00 10/08/18 19:56 93 I & O 10/09/18 07:00 Intake Total 1255 ml Output Total 275 ml Balance 980 ml Capillary Refill : Less Than 3 Seconds General Appearance: No Apparent Distress Neck: Supple Respiratory: Decreased Breath Sounds Cardiovascular: Regular Rate, Rhythm, Systolic Murmur Gastrointestinal: normal bowel sounds, soft, tenderness (LLQ) Extremity: Non Tender, No Calf Tenderness, No Pedal Edema Neurologic/Psychiatric: Alert, Oriented x3 Skin: Ecchymosis (left lower abdomen with hematoma) Results Lab Laboratory Tests 10/09/18 05:35: White Blood Count 145.9*H, Red Blood Count 2.56L, Hemoglobin 8.7L, Hematocrit 26L, Mean Corpuscular Volume 103H, Mean Corpuscular Hemoglobin 34, Mean Corpuscular Hemoglobin Concent 33, Red Cell Distribution Width 18.0H, Platelet Count 75L, Mean Platelet Volume 11.0H, Neutrophils (%) (Auto) , Lymphocytes (%) (Auto) , Monocytes (%) (Auto) , Eosinophils (%) (Auto) , Basophils (%) (Auto) , Neutrophils # (Auto) , Lymphocytes # (Auto) , Monocytes # (Auto) , Eosinophils # (Auto) , Basophils # (Auto) , Sodium Level 142, Potassium Level 4.1, Chloride Level 106, Carbon Dioxide Level 27, Anion Gap 9, Blood Urea Nitrogen 22H, Creatinine 1.46H, Estimat Glomerular Filtration Rate 46, BUN/Creatinine Ratio 15 , Glucose Level 128H, Calcium Level 8.1L Microbiology 10/05/18 Blood Culture - Preliminary, Resulted No growth Assessment/Plan Assessment/Plan Assess & Plan/Chief Complaint 1. Acute Non STEMI--cardiology managing medically 2. Acute Pneumonia--on rocephin/zithromax, repeat CXR 3. Acute Systolic CHF--on lasix 4. 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 Hypertension--home meds resumed 6. Parkinson's--stable 7. Weakness--started PT 8. LLQ pain from hematoma--warm pack and hydrocodone prn Clinical Quality Measures AMI/AHF: ASA po Prior to arrival: Yes (324 PER EMS) DVT/VTE Risk/Contraindication: Risk Factor Score Per Nursin RFS Level Per Nursing on Admit: 4+=Very High ISHA LEAVITT DO Oct 09, 2018 17:43
[2018-10-09] MEDS ORDERED: HYDROcodone/APAP 5 MG/325 MG (LORTAB) TAB PO PRN (17:45)
[2018-10-09 20:39] VITALS: BP 140/64
[2018-10-10] VITALS (7 sets, daily range): BP systolic 91–142; BP diastolic 51–82
[2018-10-10] MEDS: FUROSEMIDE 40 MG/4 ML INJ (LASIX) IVP SCH ×2 (05:45→16:03)
[2018-10-10] MEDS: KCL 20 MEQ TAB (K-DUR) PO SCH ×2 (05:45→16:03)
[2018-10-10] MEDS: RT-ALBUTEROL SULF 2.5 MG/3 ML PRE-MIX VIAL INH SCH ×4 (08:18→19:49)
[2018-10-10] MEDS: ACETAMINOPHEN 325 MG TABLET PO PRN ×2 (08:57→19:51)
[2018-10-10] MEDS: SIMvastatin 40 MG (ZOCOR) TAB PO SCH (08:57)
[2018-10-10] MEDS: LOSARTAN 50 MG (COZAAR) TAB PO SCH (08:57)
[2018-10-10] MEDS: OMEGA 3 (FISH OIL) 1000 MG CAP PO SCH (08:57)
[2018-10-10] MEDS: ISOSORBIDE MONONITRATE 30 MG (IMDUR) TAB PO SCH (08:57)
[2018-10-10] MEDS: CARVEDILOL 12.5 MG (COREG) TABLET PO SCH ×2 (08:57→19:53)
--- NOTE | 2018-10-10 09:02 | Cardiology Progress Note ---
Subjective Date Seen by Provider: Oct 10, 2018 Time Seen by Provider: 09:01 Subjective/Events-last exam Patient is sitting in bed eating breakfast, denied any chest pain. Review of Systems General: No Chills, No Night Sweats, No Fatigue, No Malaise, No Appetite, No Other HEENT: No Head Aches, No Visual Changes, No Eye Pain, No Ear Pain, No Dysphasia , No Sinus Congestion, No Post Nasal Drip, No Sore Throat, No Other Pulmonary: No Dyspnea, No Cough, No Pleuritic Chest Pain, No Other Cardiovascular: No: Chest Pain, Palpitations, Orthopnea, Paroxysmal Noc. Dyspnea, Edema, Lt Headedness, Other Objective-Cardiology Exam Last Set of Vital Signs Vital Signs 10/10/18 10/10/18 10/10/18 08:01 08:18 08:57 Temp 100.5 Pulse 98 Resp 20 B/P (MAP) 139/63 (88) Pulse Ox 95 O2 Delivery Nasal Cannula O2 Flow Rate 3.00 Capillary Refill : Less Than 3 Seconds I&O Intake and Output 10/09/18 23:59 Intake Total 1700 ml Output Total 300 ml Balance 1400 ml Intake Oral 1700 ml Output Urine Total 300 ml # Voids 3 # Bowel Movements 1 General: Alert, Oriented X3, Cooperative, Moderate Distress HEENT: Atraumatic, PERRLA Neck: Supple, No JVD, No Thyromegaly Lungs: Normal Air Movement, Other (bilateral rhonchi) Heart: Regular Rate, Normal S1, Normal S2, No Murmurs Abdomen: Normal Bowel Sounds, Soft, No Tenderness, No Hepatosplenomegaly, No Masses Extremities: No Clubbing, No Cyanosis, Normal Pulses, No Tenderness/Swelling, Other (trace edema) Skin: No Rashes, No Breakdown, No Significant Lesion Neuro: Normal Gait, Normal Speech, Strength at 5/5 X4 Ext, Normal Tone, Sensation Intact Psych/Mental Status: Mental Status NL, Mood NL A/P-Cardiology Admission Diagnosis Chest pain Non-ST elevation myocardial infarction Coronary artery disease Hypertension Hyperlipidemia Assessment/Plan Non-ST elevation myocardial infarction, conservative management, no intervention is recommended, continue to monitor. Recurrent chest pain, started on long-acting nitroglycerin, feeling better, continue to monitor Congestive heart failure, acute left ventricular systolic dysfunction, inferior wall is akinetic to severely hypokinetic, ejection fraction 40-45 percent, continue on Lasix and monitor Hypokalemia, secondary to Lasix,continue to replace and monitor. Pneumonia on chest x-ray, started on Rocephin and Zithromax, managed by primary care team AML, WBC rapidly elevating. Patient has opted not to treat. Dr. Chinchilla following. school services officer was contacted to discuss hospice. Coronary artery disease, history of CABG 4 done in 1981 and redo CABG 5 done in 1999, has been followed by Dr. Yen, had an angiogram about 5 years ago and treated conservatively Hypertension, continue to monitor blood pressure at this time Hyperlipidemia, has been on simvastatin, monitor lipids Benign prostatic hypertrophy Parkinson disease next Patient might be discharged today on hospice. I will sign off at this time, reconsult if needed Thank you for allowing me to pursue patent and management of Mr. Bran Clinical Quality Measures AMI/AHF: ASA po Prior to arrival: Yes (324 PER EMS) DVT/VTE Risk/Contraindication: Risk Factor Score Per Nursin RFS Level Per Nursing on Admit: 4+=Very High DAVINA YAN MD Oct 10, 2018 09:02
--- NOTE | 2018-10-10 10:23 | Physical Therapy Daily Note ---
PT Daily Note-Current Subjective Agreeable to pt. No complaints noted. Wants to sit up in the chair post treatment. Mental Status Patient Orientation: Person, Place, Time, Situation Attachments: Oxygen (3 l/min; in situ post treatment) Transfers Therapy Code Descriptions/Definitions Functional [place] Measure: 0=Not Assessed/NA 4=Minimal Assistance 1=Total Assistance 5=Supervision or Setup 2=Maximal Assistance 6=Modified [place] 3=Moderate Assistance 7=Complete [place] Therapy Quality Codes: 6 Independent with activity with or without an assistive device 5 Patient requires set up or clean up by helper. Patient completes activity by themselves 4 Supervision or touching assist (CGA). [place] provide cues , steadying assist 3 The helper provides less than half the effort to complete the activity 2 The helper provides more than half the effort to complete the activity 1 Dependent. The helper does all the effort to complete an activity 7 Patient refused to complete or attempt activity 9 The patient did not perform the activity before the current illness or injury 88 Not attempted due to Medical conditions or safety concerns Transfers (B, C, W/C) (FIM): 5 Supine to/from Sit: 5 Sit to/from Stand: 5 SBA with all transfers but performed safely. Gait Training Gait (FIM): 5 Distance (FIM): 3=150 ft Distance: 250 ft Gait Level of Assist: 5 Gait Assistive Device: FWW safe and steady. Exercises Seated Therapy Exercises: Ankle pumps, Long arc quads, Hip flexion, Hip abd/add Seated Reps: 10 (to promote LE strength and functional activity tolerance) Assessment Current Status: Good Progress Safe with gait and transfers. PT Short Term Goals Short Term Goals Time Frame: Oct 16, 2018 Transfers (B,C,W/C) (FIM): 66 Gait (FIM): 5 (met) Distance (FIM): 3=150 ft Gait Distance Comment: 200' Gait Level of Assist: 5 Gait Assistive Device: FWW PT Plan Problem List Problem List: Activity Tolerance, Functional Strength, Safety, Balance, Gait, Transfer Treatment/Plan Treatment Plan: Continue Plan of Care Treatment Plan: Bed Mobility, Education, Functional Activity Gigi, Functional Strength, Gait, Safety, Therapeutic Exercise, Transfers Treatment Duration: Oct 16, 2018 Frequency: 6 times per week Estimated Hrs Per Day: .25 hour per day (15-30') Patient and/or Family Agrees t: Yes Safety Risks/Education Patient Education: Safety Issues Teaching Recipient: Patient Teaching Methods: Discussion Response to Teaching: Return Demonstration Time/GCodes Time In: 940 Time Out: 1004 Total Billed Treatment Time: 24 Total Billed Treatment visit GT 14 EX 10 CHRISTIAN ZAMARRIPA PT Oct 10, 2018 10:23
--- NOTE | 2018-10-10 13:11 | Occupational Ther Daily Note ---
OT Current Status-Daily Note Subjective Pt in room & in recliner seated . Pt states that " I am fine, doing better. " Pt agree for OT Treatment. Pain Numeric Pain Scale: 0-No Pain Location: No Pain Reported Mental Status/Objective Patient Orientation: Person, Place, Time, Situation Therapy Code Descriptions/Definitions Functional [place] Measure: 0=Not Assessed/NA 4=Minimal Assistance 1=Total Assistance 5=Supervision or Setup 2=Maximal Assistance 6=Modified [place] 3=Moderate Assistance 7=Complete [place] Attachments: Central Line, Oxygen, Saline Lock, SCD's ADL-Treatment Pt participated in strengthening ex to BUE, & sit to stand activities. Pt completed 15 reps x 2 sets x 2 lb wt with BUE , 30 reps with Red theraband with each hand, 20 reps & 30 reps with each hand sqeezing ex with hand gripper to strengthen Hand instructional developer.. Pr sit to stand at chair side but did'nt walk.with walker. Eating (FIM): 7 Grooming (FIM): 6 Bathing (FIM): 0 Upper Body (FIM): 0 Lower Body Dressing (FIM): 2 Toileting (FIM): 4 Transfers (B, C, W/C) (FIM): 4 Toilet/Commode Transfer (FIM): 4 Tub Transfer(FIM): 2 Shower Transfer(FIM): 4 Education OT Patient Education: Correct positioning, Instructions to caregiver, Safety issues Teaching Recipient: Patient Teaching Methods: Demonstration Response to Teaching: Verbalize Understanding OT Short Term Goals Short Term Goals Time Frame: Oct 23, 2018 Grooming(FIM): 6 Bathing(FIM): 4 Bathing Location: L Arm, R Arm, L Upper Leg, R Upper Leg, L Lower Leg ( including foot), R Lower Leg (including foot), Chest, Abdomen, Buttocks, Perineal Area Upper Body Dressing(FIM): 6 Lower Body Dressing(FIM): 3 Toileting(FIM): 6 Transfers (B,C,W/C) (FIM): 66 Toilet/Commode Transfer(FIM): 6 Tub Transfer(FIM): 4 Shower Transfer(FIM): 6 Additional Short Term Goals: 1-Demonstrate ADL Tasks, 2-Verbalize Understanding , 3-ImproveStrength/Gigi 1=Demonstrate adherence to instructed precautions during ADL tasks. 2=Patient will verbalize/demonstrate understanding of assistive devices/ modifications for ADL. 3=Patient will improve strength/tolerance for activity to enable patient to perform ADL's. OT Usp Goals Office Services Associate Goals Time Frame: Nov 06, 2018 Eating (FIM): 7 Grooming(FIM): 7 Bathing(FIM): 6 Bathing Location: L Arm, R Arm, L Upper Leg, R Upper Leg, L Lower Leg ( including foot), Abdomen, Buttocks, Perineal Area Upper Body Dressing(FIM): 7 Lower Body Dressing(FIM): 6 Toileting(FIM): 7 Transfers (B,C,W/C) (FIM): 7 Toilet/Commode Transfer(FIM): 7 Tub Transfer(FIM): 5 Shower Transfer(FIM): 7 Additional Goals: 1-Demonstrate ADL Tasks, 2-Verbalize Understanding, 3- ImproveStrength/Gigi 1=Demonstrate adherence to instructed precautions during ADL tasks. 2=Patient will verbalize/demonstrate understanding of assistive devices/ modifications for ADL. 3=Patient will improve strength/tolerance for activity to enable patient to perform ADL's. OT Education/Plan Problem List/Assessment Assessment: Decreased Activ Tolerance, Decreased Safety Aware, Decreased UE Strength, Dependent Transfers, Impaired Bed Mobility, Impaired Coordination, Impaired Funct Balance, Impaired Self-Care Skills Discharge Recommendations Plan/Recommendations: Continue POC Equpiment Recommendations-D/C: Extended Bath Bench, Extended Shower Sprayer, Meter Engineer Treatment Plan/Plan of Care Treatment,Training & Education: Yes Patient would benefit from OT for education, treatment and training to promote independence in ADL's, mobility, safety and/or upper extremity function for ADL' s. Plan of Care: ADL Retraining, Caregiver Training, Functional Mobility, UE Funct Exercise/Act, UE Neuromus Re-Ed/Coord Treatment Duration: Nov 06, 2018 Frequency: 5 times per week Estimated Hrs Per Day: .25 hour per day Agreement: Yes Rehab Potential: Good Time/GCodes Start Time: 11:30 Stop Time: 11:14 Total Time Billed (hr/min): 14 Billed Treatment Time 1, FA 14. Total minutes 14 . SHALOM ZARATE OT Oct 10, 2018 13:11
--- NOTE | 2018-10-10 14:05 | NUR ---
DISCHARGE PLANNING: Dr. Lemus is planning to discharge this patient tomorrow to home with family support and hospice using [facility]. I have let [facility] know that the patient is not discharging today. Daughter is not in room and several attempts to visit with patient have not been successful. Will continue to support the patient and family as needed.
[2018-10-10] MEDS: cefTRIAXone FOR IV USE 1,000 MG in WATER (STERILE) FOR INJECTION 10 ML IV SCH (15:08)
--- NOTE | 2018-10-10 18:35 | Progress Note (SOAP) ---
Subjective Date Seen by a Provider: Oct 10, 2018 Time Seen by a Provider: 18:31 Subjective/Events-last exam Fwup non STEMI, pneumonia, Acute systolic CHF, Hypertension, Parkinson's, AML. Sitting up in chair. No complaints. Family has decided on [facility] hosp[facility]. Objective Exam Vital Signs Date Time Temp Pulse Resp B/P (MAP) Pulse Ox O2 Delivery O2 Flow Rate FiO2 10/10/18 15:47 99.8 88 25 142/82 (102) 90 Nasal Cannula 3.50 10/10/18 14:29 86 Nasal Cannula 3.00 10/10/18 13:28 85 10/10/18 11:36 92 Nasal Cannula 3.00 10/10/18 11:19 100.5 69 20 91/51 (64) 95 Nasal Cannula 2.00 10/10/18 08:57 100.5 10/10/18 08:18 95 Nasal Cannula 3.00 10/10/18 08:01 100.6 98 20 139/63 (88) 93 Nasal Cannula 2.00 10/10/18 08:00 Nasal Cannula 3.00 10/10/18 07:39 96 10/10/18 04:02 99.0 82 22 110/66 (81) 96 Nasal Cannula 3.00 10/10/18 01:00 93 10/10/18 00:11 99.8 88 22 124/58 (80) 95 Nasal Cannula 3.00 10/09/18 20:39 99.2 96 22 140/64 (89) 94 Nasal Cannula 3.00 10/09/18 20:00 Nasal Cannula 3.00 10/09/18 19:33 90 Nasal Cannula 4.00 10/09/18 19:00 104 I & O 10/10/18 07:00 Intake Total 1800 ml Output Total 300 ml Balance 1500 ml Capillary Refill : NONE General Appearance: No Apparent Distress Respiratory: Lungs Clear Cardiovascular: Regular Rate, Rhythm Gastrointestinal: normal bowel sounds, non tender, soft Extremity: Non Tender, No Calf Tenderness, No Pedal Edema Neurologic/Psychiatric: Alert, Oriented x3 Results Lab Microbiology 10/05/18 Blood Culture - Preliminary, Resulted No growth Assessment/Plan Assessment/Plan Assess & Plan/Chief Complaint 1. Acute Non STEMI--cardiology managing medically 2. Acute Pneumonia--on rocephin/zithromax 3. Acute Systolic CHF--on lasix 4. 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 Hypertension--home meds resumed 6. Parkinson's--stable 7. Weakness--started PT 8. LLQ pain from hematoma--warm pack and hydrocodone prn Clinical Quality Measures AMI/AHF: ASA po Prior to arrival: Yes (324 PER EMS) DVT/VTE Risk/Contraindication: Risk Factor Score Per Nursin RFS Level Per Nursing on Admit: 4+=Very High ISHA LEAVITT DO Oct 10, 2018 18:35
[2018-10-10] MEDS ORDERED: ACHD5005 PO (18:43)
[2018-10-10] MEDS ORDERED: FURO40TA4 PO (18:43)
[2018-10-10] MEDS ORDERED: POTA20TA8 PO (18:43)
[2018-10-10] MEDS ORDERED: DOXY100C2 PO (18:43)
[2018-10-11 04:12] VITALS: BP 129/57
[2018-10-11] MEDS: FUROSEMIDE 40 MG/4 ML INJ (LASIX) IVP SCH (06:12)
[2018-10-11] MEDS: KCL 20 MEQ TAB (K-DUR) PO SCH (06:12)
[2018-10-11] MEDS: RT-ALBUTEROL SULF 2.5 MG/3 ML PRE-MIX VIAL INH SCH ×2 (07:11→11:48)
[2018-10-11 08:00] VITALS: BP 120/62
[2018-10-11] MEDS: CARVEDILOL 12.5 MG (COREG) TABLET PO SCH (08:45)
[2018-10-11] MEDS: OMEGA 3 (FISH OIL) 1000 MG CAP PO SCH (08:45)
[2018-10-11] MEDS: ISOSORBIDE MONONITRATE 30 MG (IMDUR) TAB PO SCH (08:45)
[2018-10-11] MEDS: SIMvastatin 40 MG (ZOCOR) TAB PO SCH (08:46)
[2018-10-11] MEDS: LOSARTAN 50 MG (COZAAR) TAB PO SCH (08:46)
--- NOTE | 2018-10-11 10:52 | Physical Therapy Daily Note ---
PT Daily Note-Current Subjective Pt reports feeling weak and tired but agreeable to PT Pain Numeric Pain Scale: 0-No Pain Appearance At beginning of session, pt in bed awake and alert, using urinal and talking on phone with daughter At end of session, pt sitting up in recliner with LE's elevated, call light, phone and bedside table within reach. All needs met at this time. Mental Status Patient Orientation: Person, Place, Time, Situation Transfers Therapy Code Descriptions/Definitions Functional [place] Measure: 0=Not Assessed/NA 4=Minimal Assistance 1=Total Assistance 5=Supervision or Setup 2=Maximal Assistance 6=Modified [place] 3=Moderate Assistance 7=Complete [place] Therapy Quality Codes: 6 Independent with activity with or without an assistive device 5 Patient requires set up or clean up by helper. Patient completes activity by themselves 4 Supervision or touching assist (CGA). [place] provide cues , steadying assist 3 The helper provides less than half the effort to complete the activity 2 The helper provides more than half the effort to complete the activity 1 Dependent. The helper does all the effort to complete an activity 7 Patient refused to complete or attempt activity 9 The patient did not perform the activity before the current illness or injury 88 Not attempted due to Medical conditions or safety concerns Transfers (B, C, W/C) (FIM): 5 [place] Supine to/from Sit: 5 Sit to/from Stand: 5 pt demonstrating smooth transitions with transfers although showing a taxing effort and requiring verb instruction x1 for safety and hand placement before sitting into recliner Gait Training Gait (FIM): 5 Distance (FIM): 3=150 ft Distance: 230 Gait Level of Assist: 5 Gait Persons Needed: 1 Gait Assistive Device: FWW slow steady gait, BLE's ER, forward flexed posture, fatigue at end of gait distance Exercises Seated Therapy Exercises: Ankle pumps, Sit to stand, Long arc quads, Hip flexion, Hip abd/add Seated Reps: 10 Treatments safety, gait and transfer training, LE exercises Assessment Current Status: Good Progress PT Short Term Goals Short Term Goals Time Frame: Oct 16, 2018 Transfers (B,C,W/C) (FIM): 66 Gait (FIM): 5 (met) Distance (FIM): 3=150 ft Gait Distance Comment: 200' Gait Level of Assist: 5 Gait Assistive Device: FWW PT Plan Problem List Problem List: Activity Tolerance, Functional Strength, Safety, Gait, Transfer Treatment/Plan Treatment Plan: Continue Plan of Care Treatment Plan: Bed Mobility, Education, Functional Activity Gigi, Functional Strength, Gait, Safety, Therapeutic Exercise, Transfers Treatment Duration: Oct 16, 2018 Frequency: 6 times per week Estimated Hrs Per Day: .25 hour per day (15-30') Patient and/or Family Agrees t: Yes Safety Risks/Education Patient Education: Gait Training, Transfer Techniques, Safety Issues Teaching Recipient: Patient Teaching Methods: Demonstration, Discussion Response to Teaching: Verbalize Understanding, Return Demonstration Time/GCodes Time In: 903 Time Out: 931 Total Billed Treatment Time: 28 Total Billed Treatment 1 visit, GT x18, EX x10 EDY NEELY PTA Oct 11, 2018 10:52
[2018-10-11 12:00] VITALS: BP 125/55
--- NOTE | 2018-10-11 12:28 | Occupational Ther Daily Note ---
OT Current Status-Daily Note Subjective Pt in recliner, resting with O2 on. Pt alert, oriented, Agree for OT treatment & for sponge-bath. Pain Numeric Pain Scale: 5-Moderate Pain Location: Left Location Body Site: Shoulder Pain Description: Ache, Throbbing Mental Status/Objective Patient Orientation: Person, Place, Time, Situation, Normal For Age Therapy Code Descriptions/Definitions Functional [place] Measure: 0=Not Assessed/NA 4=Minimal Assistance 1=Total Assistance 5=Supervision or Setup 2=Maximal Assistance 6=Modified [place] 3=Moderate Assistance 7=Complete [place] Attachments: Central Line, IV, Oxygen ADL-Treatment Pt participated in sponge-bath with warm " Ready-Bath" wipes. Pt needs SBA in LB bath , Abdomen, around neck & dependent on back cleaning. Comb his hairs , sit to stand with CGA, Pt ambulate with FWW with CGA inside the room, Completed 25 reps flex/ext with 2 lbs wt , 30 reps with red theraband & 25 reps with hand gripper to strengthen hand nutrition counselor. Eating (FIM): 7 Grooming (FIM): 6 Bathing (FIM): 4 Bathing Location: L Arm, R Arm, L Upper Leg, Chest, Abdomen Upper Body (FIM): 4 Lower Body Dressing (FIM): 2 Toileting (FIM): 4 Transfers (B, C, W/C) (FIM): 5 Toilet/Commode Transfer (FIM): 5 Tub Transfer(FIM): 0 Shower Transfer(FIM): 0 Education OT Patient Education: Correct positioning, Safety issues Teaching Recipient: Patient Teaching Methods: Demonstration Response to Teaching: Verbalize Understanding OT Short Term Goals Short Term Goals Time Frame: Oct 23, 2018 Grooming(FIM): 6 Bathing(FIM): 4 Bathing Location: L Arm, R Arm, L Upper Leg, R Upper Leg, L Lower Leg ( including foot), R Lower Leg (including foot), Chest, Abdomen, Buttocks, Perineal Area Upper Body Dressing(FIM): 6 Lower Body Dressing(FIM): 3 Toileting(FIM): 6 Transfers (B,C,W/C) (FIM): 66 Toilet/Commode Transfer(FIM): 6 Tub Transfer(FIM): 4 Shower Transfer(FIM): 6 Additional Short Term Goals: 1-Demonstrate ADL Tasks, 2-Verbalize Understanding , 3-ImproveStrength/Gigi 1=Demonstrate adherence to instructed precautions during ADL tasks. 2=Patient will verbalize/demonstrate understanding of assistive devices/ modifications for ADL. 3=Patient will improve strength/tolerance for activity to enable patient to perform ADL's. OT Skilled Nursing Goals Machine Cloth Examiner Goals Time Frame: Nov 06, 2018 Eating (FIM): 7 Grooming(FIM): 7 Bathing(FIM): 6 Bathing Location: L Arm, R Arm, L Upper Leg, R Upper Leg, L Lower Leg ( including foot), Abdomen, Buttocks, Perineal Area Upper Body Dressing(FIM): 7 Lower Body Dressing(FIM): 6 Toileting(FIM): 7 Transfers (B,C,W/C) (FIM): 7 Toilet/Commode Transfer(FIM): 7 Tub Transfer(FIM): 5 Shower Transfer(FIM): 7 Additional Goals: 1-Demonstrate ADL Tasks, 2-Verbalize Understanding, 3- ImproveStrength/Gigi 1=Demonstrate adherence to instructed precautions during ADL tasks. 2=Patient will verbalize/demonstrate understanding of assistive devices/ modifications for ADL. 3=Patient will improve strength/tolerance for activity to enable patient to perform ADL's. OT Education/Plan Problem List/Assessment Assessment: Decreased Activ Tolerance, Decreased Safety Aware, Decreased UE Strength, Dependent Transfers, Impaired Bed Mobility, Impaired Funct Balance, Impaired Self-Care Skills Discharge Recommendations Plan/Recommendations: Continue POC Therapy D/C Recommendations: Home w/ Family Support Equpiment Recommendations-D/C: Extended Bath Bench, Extended Shower Sprayer, Materials Technician Treatment Plan/Plan of Care Treatment,Training & Education: Yes Patient would benefit from OT for education, treatment and training to promote independence in ADL's, mobility, safety and/or upper extremity function for ADL' s. Plan of Care: ADL Retraining, Caregiver Training, Functional Mobility, UE Funct Exercise/Act, UE Neuromus Re-Ed/Coord Treatment Duration: Nov 06, 2018 Frequency: 5 times per week Estimated Hrs Per Day: .25 hour per day Agreement: Yes Rehab Potential: Good Time/GCodes Start Time: 10:30 Stop Time: 10:54 Total Time Billed (hr/min): 24 Billed Treatment Time 1, ADL 14 min, FA 10 min. Total 24 min. SHALOM ZARATE OT Oct 11, 2018 12:28
--- NOTE | 2018-10-11 14:21 | Discharge Summary ---
Diagnosis/Chief Complaint Date of Admission Oct 05, 2018 at 15:40 Date of Discharge Discharge Date: Oct 11, 2018 Discharge Diagnosis 1. Acute Non STEMI--medical management 2. Acute Pneumonia--improved, home on doxycycline 3. Acute Systolic CHF--home on lasix 4. 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 Hypertension--stable 6. Parkinson's--stable 7. Weakness--improved after PT 8. LLQ pain from hematoma--warm pack and hydrocodone prn Discharge Summary Hospital Course Hospital Course This is an 87 year old male with a known history of CAD with previous stent placement who presented to the emergency room via EMS with chest pain and fatigue. He was given sublingual nitroglycerin in the emergency room which did relieve his pain. Further evaluation revealed a pneumonia on CXR as well as an elevated WBC count of 50,000 with a predominance of lymphocytes suspicious for leukemia. He had been in my office in July for a routine exam and his WBC count at that time was 4.8. He did admit that he had been feeling more fatigued the past few months. He was admitted to the hospital and seen by cardiology and was treated medically for a non STEMI. He was given IV rocephin and zithromax for his pneumonia. Oncology was consulted to assess his leukocytosis which was increasing quickly on a daily basis and was up to 145, 000 2 days prior to discharge. It was discussed that he did have AML and that it appeared to be very aggressive and the patient opted for no treatment and to go home on hospice. His daughter arrived from out of town and arrangements were made for [facility] hospice and discharge to home. She will be staying with her father at his house. The patient and family do understand that with the aggressive nature of his cancer that he likely on has a few weeks to live. At this time he denies pain. Labs Laboratory Tests 10/09/18 05:35: White Blood Count 145.9*H, Red Blood Count 2.56L, Hemoglobin 8.7L, Hematocrit 26L, Mean Corpuscular Volume 103H, Red Cell Distribution Width 18.0H, Platelet Count 75L, Mean Platelet Volume 11.0H, Blood Urea Nitrogen 22H, Creatinine 1.46H , Glucose Level 128H, Calcium Level 8.1L Procedures None. Discharge Physical Examination Allergies: Coded Allergies: Penicillins (Unverified Allergy, Unknown, 10/08/18) sertraline (Unverified Allergy, Unknown, 10/08/18) Vitals & I&Os Vital Signs Date Time Temp Pulse Resp B/P (MAP) Pulse Ox O2 Delivery O2 Flow Rate FiO2 10/11/18 13:11 90 10/11/18 11:48 91 Nasal Cannula 4.00 10/11/18 08:00 99.1 20 120/62 (81) General Appearance: Alert, Oriented X3, Cooperative, No Acute Distress Respiratory: Clear to Auscultation Cardiovascular: Regular Rate Extremities: No Cyanosis, No Edema Psych/Mental Status: Mental Status NL, Mood NL Discharge Home Medications Reviewed and agree with Discharge Medication list on patient's Discharge Instruction sheet Instructions to Patient/Family Please see electronic discharge instructions given to patient. Clinical Quality Measures AMI/AHF: ASA po Prior to arrival: Yes (324 PER EMS) DVT/VTE Risk/Contraindication: Risk Factor Score Per Nursin RFS Level Per Nursing on Admit: 4+=Very High ISHA LEAVITT DO Oct 11, 2018 14:21
--- NOTE | 2018-10-11 14:39 | Diagnostic Imaging Report ---
INDICATION: Pneumonia. COMPARISON: 10/06/2018. EXAMINATION: Chest FINDINGS: Bilateral infiltrates substantially improved. Sternal wires midline. No pneumothorax. IMPRESSION: Improvements in perihilar infiltrates with no adverse development. Dictated by: Dictated on workstation # [id number]
== END 2018-10-11 14:20 | disposition hospice, home (50) | DRG 280 ==
LOC: EDUNIT# 14:19 → ER 14:20 → 4TH 15:40
PROVIDERS: ADMIT Internal Medicine; ATTEND Internal Medicine
DX: I21.4 Non-ST elevation (NSTEMI) myocardial infarction (principal); I11.0 Hypertensive heart disease with heart failure; I50.21 Acute systolic (congestive) heart failure; J18.1 Lobar pneumonia, unspecified organism; C92.00 Acute myeloblastic leukemia, not having achieved remission; I25.10 Atherosclerotic heart disease of native coronary artery without angina pectoris; E78.5 Hyperlipidemia, unspecified; N40.0 Benign prostatic hyperplasia without lower urinary tract symptoms; Z51.5 Encounter for palliative care; Z66 Do not resuscitate; M79.81 Nontraumatic hematoma of soft tissue; G20 Parkinson's disease; I45.10 Unspecified right bundle-branch block; D69.6 Thrombocytopenia, unspecified; I25.2 Old myocardial infarction; K21.9 Gastro-esophageal reflux disease without esophagitis; F32.9 Major depressive disorder, single episode, unspecified; M19.91 Primary osteoarthritis, unspecified site; E87.6 Hypokalemia; T50.1X5A Adverse effect of loop [high-ceiling] diuretics, initial encounter; R53.1 Weakness; Z95.1 Presence of aortocoronary bypass graft; Z87.891 Personal history of nicotine dependence; Z79.01 Long term (current) use of anticoagulants
CPT/HCPCS: 36415; 71045; 71046; 80048; 80053; 80061; 83605; 83735; 83874; 83880; 84484; 85007; 85025; 85027; 85045; 85610; 85730; 87040; 88184; 88185; 90471; 90686; 93005; 93041; 93306; 94640; 94760